=== PATIENT | female | born 1970 | race Caucasian/White ===

== ENCOUNTER 2016-08-12 14:54 | Emergency (ER) | payer BC, OTHER ==
[~2016-08-12] VITALS: Ht 157.5 cm; Wt 61.2 kg
[2016-08-12] MEDS ORDERED: RT-LEVALBUTEROL (XOPENEX) 1.25 MG/3 ML NEB NON-FORMULARY ONE (15:06)
[2016-08-12] MEDS ORDERED: RT-LEVALBUTEROL (XOPENEX) 1.25 MG/3 ML NEB NON-FORMULARY INH ONE (15:10)
[2016-08-12 15:55] LABS: BASOPHILS # (AUTO) 0.1 10^3/uL (0.0-0.1); BASOPHILS % (AUTO) 1 % (0-10); EOSINOPHILS # (AUTO) 0.2 10^3/uL (0.0-0.3); EOSINOPHILS % (AUTO) 2 % (0-10); LYMPHOCYTES % (AUTO) 23 % (12-44); MEAN CORPUSCULAR HEMOGLOBIN 26 PG (25-34); MEAN CORPUSCULAR HGB CONC 32 G/DL (32-36); MEAN CORPUSCULAR VOLUME 81 FL (80-99); MEAN PLATELET VOLUME 9.3 FL (7.4-10.4); MONOCYTES % (AUTO) 12 % (0-12); NEUTROPHILS # (AUTO) 5.3 X 10^3 (1.8-7.8); NEUTROPHILS % (AUTO) 62 % (42-75); PLATELET COUNT 423 10^3/uL (130-400); RED BLOOD COUNT 3.76 10^6/uL (4.35-5.85); RED CELL DISTRIBUTION WIDTH 16.1 % (10.0-14.5); WHITE BLOOD COUNT 8.6 10^3/uL (4.3-11.0)
--- NOTE | 2016-08-12 16:07 | ED Cough/URI ---
General Chief Complaint: Respiratory Problems Stated Complaint: COUGH; CONGESTION; CP Source: patient Exam Limitations: no limitations History of Present Illness Time seen by provider: 16:05 Initial Comments To ER with cough, sore throat, runny nose, shortness of breath. This began yesterday 24 hours ago. No history of DVT. No unilateral leg swelling. She is a one half pack per day smoker. No fevers or chills. She is currently on antibiotics it would likely include amoxicillin and clarithromycin as she recently tested positive for H. pylori Timing/Duration: just prior to arrival Severity/Quality: dry cough Prior Episodes/Possible Cause: no prior episodes Modifying Factors: Improves With Activity Associated Symptoms: cough, shortness of breath Allergies and Home Medications Allergies Coded Allergies: No Allergy Information Available (Unverified , 08/12/16) Home Medications Amoxicillin 500 Mg Capsule #56 (Reported) Atorvastatin Calcium 20 Mg Tablet #30 (Reported) Clarithromycin 500 Mg Tablet #28 (Reported) Clonazepam 0.5 Mg Tablet #60 (Reported) Cyclobenzaprine HCl 10 Mg Tablet #30 (Reported) Metoprolol Succinate 50 Mg Tab.er.24h #30 (Reported) Omeprazole 20 Mg Capsule.dr #60 (Reported) Constitutional: see HPI EENTM: see HPI Respiratory: see HPI dyspnea on exertion short of breath Cardiovascular: no symptoms reported Genitourinary: no symptoms reported Musculoskeletal: no symptoms reported Skin: no symptoms reported Psychiatric/Neurological: No Symptoms Reported Physical Exam Vital Signs Vital Sign - Last 12Hours 08/12/16 08/12/16 14:54 15:15 Temp 97.0 Pulse 98 Resp 18 B/P 116/78 Pulse Ox 98 O2 Delivery Room Air Capillary Refill : General Appearance: WD/WN no apparent distress Eyes: Bilateral Eye EOMI, Bilateral Eye Normal Inspection, Bilateral Eye PERRL HEENT: PERRL/EOMI normal ENT inspection Respiratory: no respiratory distress no accessory muscle use Cardiovascular: no murmur tachycardia Gastrointestinal: normal bowel sounds non tender soft Extremities: normal range of motion non-tender Neurologic/Psychiatric: alert normal mood/affect oriented x 3 Skin: normal color warm/dry Progress/Results/Core Measures Results/Orders Lab Results Laboratory Tests Test 08/12/16 15:00 Range/Units Basophils # (Auto) 0.1 0.0-0.1 10^3/uL Basophils (%) (Auto) 1 0-10 % D-Dimer 0.50 H 0.00-0.49 UG/ML Eosinophils # (Auto) 0.2 0.0-0.3 10^3/uL Eosinophils (%) (Auto) 2 0-10 % Hematocrit 30 L 35-52 % Hemoglobin 9.8 L 11.5-16.0 G/DL Lymphocytes # (Auto) 2.0 1.0-4.0 X 10^3 Lymphocytes (%) (Auto) 23 12-44 % Mean Corpuscular Hemoglobin 26 25-34 PG Mean Corpuscular Hemoglobin Concent 32 32-36 G/DL Mean Corpuscular Volume 81 80-99 FL Mean Platelet Volume 9.3 7.4-10.4 FL Monocytes # (Auto) 1.0 0.0-1.0 X 10^3 Monocytes (%) (Auto) 12 0-12 % Neutrophils # (Auto) 5.3 1.8-7.8 X 10^3 Neutrophils (%) (Auto) 62 42-75 % Platelet Count 423 H 130-400 10^3/uL Red Blood Count 3.76 L 4.35-5.85 10^6/uL Red Cell Distribution Width 16.1 H 10.0-14.5 % Serum Test, Qualitative NEGATIVE NEGATIVE White Blood Count 8.6 4.3-11.0 10^3/uL My Orders Orders-ROX PENNY APRN Ct Angio Chest W (08/12/16 16:07) Iohexol Injection (Omnipaque 350 Mg/Ml 1 (08/12/16 16:15) Ns (Ivpb) (Sodium Chloride 0.9% Ivpb Bag (08/12/16 16:15) Sodium Chloride Flush (Catheter Flush Sy (08/12/16 16:15) Levalbuterol (Non-Formulary) (Xopenex (N (08/12/16 15:10) Medications Given in ED Current Medications Medications Dose Ordered Sig/Shanon Route Start Time Stop Time Status Last Admin Dose Admin Iohexol 150 ml ONCE ONCE IV 08/12/16 16:15 08/12/16 16:21 DC 08/12/16 16:22 125 ML Levalbuterol HCl 1.25 mg UD ONCE INH 08/12/16 15:10 08/12/16 16:22 DC 08/12/16 15:15 1.25 MG Sodium Chloride 100 ml ONCE ONCE IV 08/12/16 16:15 08/12/16 16:21 DC 08/12/16 16:22 80 ML Vital Signs/I&O Vital Sign - Last 12Hours 08/12/16 08/12/16 14:54 15:15 Temp 97.0 Pulse 98 Resp 18 B/P 116/78 Pulse Ox 98 98 O2 Delivery Room Air Departure Communication Progress Notes Radiologist called to report CT findings as they are unable to dictate them at this time. There is no pulmonary embolism or aortic dissection. There is no pneumonia. There are a few pulmonary nodules the largest being 7 mm at the right upper lobe which does warrant follow-up with repeat imaging. She does have rather advanced emphysema given her age. Impression Impression: Primary Impression: COPD exacerbation Additional Impression: Pulmonary nodule Disposition: 01 HOME, SELF-CARE Condition: Stable Departure-Patient Inst. Decision time for Depature: 16:56 Referrals: BE THEODORE DO (PCP/Family) Primary Care Physician Patient Instructions: COPD Including Emphysema (DC) Add. Discharge Instructions: 1. Use the inhaler 2 puffs every 4 hours as needed for shortness of breath 2. Continue your current medications 3. Add the steroids as directed All discharge instructions reviewed with patient and/or family. Voiced understanding. Scripts Prednisone 20 Mg Tab40 Mg PO DAILY #8 TAB Prov:ROX PENNY APRN 08/12/16 Copy Copies To 1: BE THEODORE PETER J APRN Aug 12, 2016 16:06
[2016-08-12] MEDS ORDERED: IOHEXOL 350 MG/ML 150 ML (OMNIPAQUE 350) VIAL IV ONE (16:15)
[2016-08-12] MEDS ORDERED: NS 100 ML (IVPB) BAG IV ONE (16:15)
[2016-08-12] MEDS ORDERED: CATHETER FLUSH 10 ML SYR IV PRN (16:15)
[2016-08-12] MEDS ORDERED: AMOX500C2 (16:45)
[2016-08-12] MEDS ORDERED: METO-272 (16:45)
[2016-08-12] MEDS ORDERED: OMEP20CA12 (16:45)
[2016-08-12] MEDS ORDERED: ATOR20TA66 (16:45)
[2016-08-12] MEDS ORDERED: CYCL10TA9 (16:45)
[2016-08-12] MEDS ORDERED: CLON0.5T3 (16:45)
[2016-08-12] MEDS ORDERED: CLAR-19 (16:45)
[2016-08-12] MEDS ORDERED: predniSONE 20 MG TAB ONE ×2 (16:56→17:00)
[2016-08-12] MEDS ORDERED: PRD20T PO (16:58)
[2016-08-12] MEDS ORDERED: RX-ALBUTEROL INHALER (VENTOLIN HFA) 18 GM IH STA (16:59)
[2016-08-12] MEDS ORDERED: predniSONE 20 MG TAB PO ONE (17:00)
[2016-08-12 17:17] VITALS: BP 116/78
--- NOTE | 2016-08-12 17:46 | Diagnostic Imaging Report ---
PROCEDURE: CT angiography of the chest with contrast. TECHNIQUE: Multiple contiguous axial images were obtained through the chest after uneventful bolus administration of intravenous contrast. Reconstructed CTA MIP acquisitions were also performed. INDICATION: Shortness of breath x 1 week. FINDINGS: Bolus contrast injection shows good opacification of the aorta and pulmonary arteries. No evidence of aortic aneurysm or dissection. Pulmonary arteries are opacified and appear normal. Lungs are well aerated. There is a 6 mm noncalcified nodule in the right upper lobe. There is a 3 mm noncalcified nodule in the left upper lobe. These are both present on page 49 of 148 on series 4. No mediastinal or hilar adenopathy of pathologic size. No pneumothorax. No pleural effusions or pericardial effusions. IMPRESSION: 1. No evidence of pulmonary emboli. 2. Two small noncalcified nodules, one in the right upper lobe and one in the left upper lobe. Six-month followup would be recommended to confirm stability. No previous studies for comparison. Dictated by: Dictated on workstation # [id number]
--- NOTE | 2016-08-12 17:50 | Diagnostic Imaging Report ---
INDICATION: Cough and chest pain. FINDINGS: Examination of the chest in the PA and lateral projections fails to reveal evidence of active parenchymal pathology or pleural effusion. The cardiac silhouette is normal. IMPRESSION: Negative chest. Dictated by: Dictated on workstation # [id number]
== END 2016-08-12 17:17 | disposition home or self-care (01) ==
LOC: EDUNIT# 14:54 → ER 14:54
DX: J44.1 Chronic obstructive pulmonary disease with (acute) exacerbation (principal); R91.8 Other nonspecific abnormal finding of lung field; F17.210 Nicotine dependence, cigarettes, uncomplicated
CPT/HCPCS: 36415; 71020; 71275; 84703; 85025; 85379; 94640

== ENCOUNTER → 2016-09-22 | Outpatient (CLI) | payer OTHER ==
[~2016-09-22] MED LIST: AMOX500C2; ATOR20TA66; CLAR-19; CLON0.5T3; CYCL10TA9; METO-272; OMEP20CA12; PRD20T PO
--- OUTSIDE RECORDS SUMMARY | 2016-09-22 10:15 | XMS REPORT | Continuity of Care Document ---
Author Author [facility] Organization [facility] Address Unknown Phone Unavailable Care Team Providers Care Alcoholism Worker Name Role Phone BE THEODORE DO PCP Insurance Providers Payer Name Policy Number Subscriber Name Relationship [employer] [id number] Leyla Wells 18 Self / Same As Patient [facility] [id number] Leyla Wells 18 Self / Same As Patient Advance Directives Directive Response Recorded Date/Time Advance Directives No 08/12/16 4:41pm Resuscitation Status Full Code 08/12/16 4:41pm Chief Complaint and Reason for Visit Chief Complaint Respiratory Problems Reason for Visit [id number] Problems Active Problems Medical Problem Onset Date Status COPD exacerbation Unknown Acute Pulmonary nodule Unknown Acute Medications Current Home Medications Medication Dose Units Route Directions Days/Qty Instructions Start Date Cyclobenzaprine Hcl 10 Mg 30 08/12/16 Amoxicillin 500 Mg 56 08/12/16 Clarithromycin 500 Mg 28 08/12/16 Omeprazole 20 Mg 60 08/12/16 Clonazepam 0.5 Mg 60 08/12/16 Metoprolol Succinate 50 Mg 30 08/12/16 Atorvastatin Calcium 20 Mg 30 08/12/16 Prednisone 20 Mg 40 Mg Oral Daily 8 08/12/16 Social History Social History Problem Response Recorded Date/Time Alcohol Use Denies Use 08/12/2016 4:41pm Recreational Drug Use No 08/12/2016 4:41pm Recent Foreign Travel No 08/12/2016 2:54pm Recent Infectious Disease Exposure No 08/12/2016 2:54pm Hospitalization with Isolation Denies 08/12/2016 2:54pm Smoking Status Current Everyday Smoker 08/12/2016 4:41pm Recent Hopitalizations No 08/12/2016 4:41pm Hospitalization with Isolation Denies 08/12/2016 2:54pm Query Response Start Date Stop Date Smoking Status Current Everyday Smoker Hospital Discharge Instructions No hospital discharge instructions. Plan of Care Discharge Date 08/12/16 5:17pm Disposition 01 HOME, SELF-CARE Condition at Discharge Stable Instructions/Education Provided COPD Including Emphysema (DC) Prescriptions See Medication Section Referrals BE THEODORE DO - Primary Care Physician Additional Instructions/Education 1. Use the inhaler 2 puffs every 4 hours as needed for shortness of breath 2. Continue your current medications 3. Add the steroids as directed All discharge instructions reviewed with patient and/or family. Voiced understanding. Functional Status No functional status results. Allergies, Adverse Reactions, Alerts Unable to obtain allergies. Immunizations No immunization records. Vital Signs Acute Vital Signs Vital Response Date/Time Temperature (Fahrenheit) 97 degrees F (97.6 - 99.5) 08/12/2016 2:54pm Temperature (Calculated Celsius) 36.1140 degrees C (36.4 - 37.5) 08/12/2016 2 :54pm Pulse Rate (adult) 98 bpm (60 - 90) 08/12/2016 2:54pm Respiratory Rate 18 bpm (12 - 24) 08/12/2016 2:54pm O2 Sat by Pulse Oximetry 98 % (88 - 100) 08/12/2016 3:15pm Blood Pressure 116/78 mm Hg 08/12/2016 2:54pm Blood Pressure Mean 91 mm Hg 08/12/2016 2:54pm Pain Numeric Pain Scale 7 08/12/2016 2:54pm Height (Feet) 5 feet 08/12/2016 2:54pm Height (Inches) 2 inches 08/12/2016 2:54pm Height (Calculated Centimeters) 157.368487 cm 08/12/2016 2:54pm Weight (Pounds) 135 pounds 08/12/2016 2:54pm Weight (Calculated Kilograms) 61.004721 kilograms 08/12/2016 2:54pm Capillary Refill Capillary Refill Less Than 3 Seconds 08/12/2016 2:54pm Height 5 ft 2 in Weight 135 lb Body Mass Index 24.7 kg/m^2 Results Laboratory Results Test Name Result Units Flags Reference Collection Date/Time Result Date/ Time Comments White Blood Count 8.6 10^3/uL 4.3-11.0 08/12/2016 3:00pm 08/12/2016 3: 55pm Red Blood Count 3.76 10^6/uL L 4.35-5.85 08/12/2016 3:00pm 08/12/2016 3: 55pm Hemoglobin 9.8 G/DL L 11.5-16.0 08/12/2016 3:00pm 08/12/2016 3:55pm Hematocrit 30 % L 35-52 08/12/2016 3:00pm 08/12/2016 3:55pm Mean Corpuscular Volume 81 FL 80-99 08/12/2016 3:00pm 08/12/2016 3: 55pm Mean Corpuscular Hemoglobin 26 PG 25-34 08/12/2016 3:00pm 08/12/2016 3: 55pm Mean Corpuscular Hemoglobin Concent 32 G/DL 32-36 08/12/2016 3:00pm 3:55pm Red Cell Distribution Width 16.1 % H 10.0-14.5 08/12/2016 3:00pm 2016 3:55pm Platelet Count 423 10^3/uL H 130-400 08/12/2016 3:00pm 08/12/2016 3:55pm Mean Platelet Volume 9.3 FL 7.4-10.4 08/12/2016 3:00pm 08/12/2016 3: 55pm Neutrophils (%) (Auto) 62 % 42-75 08/12/2016 3:00pm 08/12/2016 3:55pm Lymphocytes (%) (Auto) 23 % 12-44 08/12/2016 3:00pm 08/12/2016 3:55pm Monocytes (%) (Auto) 12 % 0-12 08/12/2016 3:00pm 08/12/2016 3:55pm Eosinophils (%) (Auto) 2 % 0-10 08/12/2016 3:00pm 08/12/2016 3:55pm Basophils (%) (Auto) 1 % 0-10 08/12/2016 3:00pm 08/12/2016 3:55pm Neutrophils # (Auto) 5.3 X 10^3 1.8-7.8 08/12/2016 3:00pm 08/12/2016 3: 55pm Lymphocytes # (Auto) 2.0 X 10^3 1.0-4.0 08/12/2016 3:00pm 08/12/2016 3: 55pm Monocytes # (Auto) 1.0 X 10^3 0.0-1.0 08/12/2016 3:00pm 08/12/2016 3: 55pm Eosinophils # (Auto) 0.2 10^3/uL 0.0-0.3 08/12/2016 3:00pm 08/12/2016 3 :55pm Basophils # (Auto) 0.1 10^3/uL 0.0-0.1 08/12/2016 3:00pm 08/12/2016 3: 55pm D-Dimer 0.50 UG/ML H 0.00-0.49 08/12/2016 3:00pm 08/12/2016 3:57pm Procedures No known history of procedures. Encounters Encounter Location Arrival/Admit Date Discharge/Depart Date Attending Provider Departed Emergency Room [facility] 08/12/16 2:54pm 08/12 5:17pm ROX PENNY APRN Recent Diagnosis
--- NOTE | 2016-09-22 18:59 | Diagnostic Imaging Report ---
Digital mammogram bilateral screening This study was compared to the prior exams of 09/20/15. At this time, there are no current complaints. The current study was also evaluated with a Computer Aided Detection (CAD) system. FINDINGS: The fibroglandular tissue in both breasts is heterogeneously dense. This does limit the sensitivity of this exam. Overall, there does not appear to have been any significant change when compared to the prior study. No primary or secondary sign of malignancy is noted. IMPRESSION: There is no radiographic evidence for malignancy. ACR BI-RADS Category 1: Negative. Result letter will be mailed to the patient. Note: At least 10% of breast cancer is not imaged by mammography. Dictated by: Dictated on workstation # [id number]
== END ==
LOC: RAD 10:12
PROVIDERS: ATTEND Family Medicine
DX: Z12.31 Encounter for screening mammogram for malignant neoplasm of breast (principal)
CPT/HCPCS: 77067

== ENCOUNTER → 2016-11-10 | Outpatient (CLI) | payer OTHER ==
[2016-11-10 11:40] LABS: BASOPHILS # (AUTO) 0.1 10^3/uL (0.0-0.1); BASOPHILS % (AUTO) 1 % (0-10); EOSINOPHILS # (AUTO) 0.3 10^3/uL (0.0-0.3); EOSINOPHILS % (AUTO) 4 % (0-10); LYMPHOCYTES # (AUTO) 2.2 X 10^3 (1.0-4.0); LYMPHOCYTES % (AUTO) 29 % (12-44); MEAN CORPUSCULAR HEMOGLOBIN 22 PG (25-34); MEAN CORPUSCULAR HGB CONC 30 G/DL (32-36); MEAN CORPUSCULAR VOLUME 75 FL (80-99); MEAN PLATELET VOLUME 9.7 FL (7.4-10.4); MONOCYTES # (AUTO) 0.8 X 10^3 (0.0-1.0); MONOCYTES % (AUTO) 10 % (0-12); NEUTROPHILS # (AUTO) 4.3 X 10^3 (1.8-7.8); NEUTROPHILS % (AUTO) 56 % (42-75); PLATELET COUNT 473 10^3/uL (130-400); RED BLOOD COUNT 3.86 10^6/uL (4.35-5.85); RED CELL DISTRIBUTION WIDTH 16.7 % (10.0-14.5); WHITE BLOOD COUNT 7.7 10^3/uL (4.3-11.0)
[2016-11-10 12:35] LABS: ANISOCYTOSIS MODERATE; BAND NEUTROPHILS 0 %; BASOPHILS % (MANUAL) 1 %; EOSINOPHILS % (MANUAL) 4 %; HYPOCHROMASIA SLIGHT; LYMPHOCYTES % (MANUAL) 33 %; MICROCYTOSIS SLIGHT; NEUTROPHILS % (MANUAL) 56 %
[2016-11-13 07:26] LABS: FERRITIN 5.0 L NG/ML (15.0-150.0)
[2016-11-13 07:27] LABS: IPF LEVEL 2.8 % (0.0-7.2)
== END ==
LOC: LAB 11:24
PROVIDERS: ATTEND Family Medicine
DX: D64.9 Anemia, unspecified (principal)
CPT/HCPCS: 36415; 82728; 85007; 85027; 85045; 85055

== ENCOUNTER → 2016-11-28 | Outpatient (CLI) | payer OTHER ==
[2016-11-28 16:57] LABS: BASOPHILS # (AUTO) 0.1 10^3/uL (0.0-0.1); BASOPHILS % (AUTO) 1 % (0-10); EOSINOPHILS # (AUTO) 0.3 10^3/uL (0.0-0.3); EOSINOPHILS % (AUTO) 3 % (0-10); LYMPHOCYTES # (AUTO) 2.5 X 10^3 (1.0-4.0); LYMPHOCYTES % (AUTO) 26 % (12-44); MEAN CORPUSCULAR HEMOGLOBIN 22 PG (25-34); MEAN CORPUSCULAR HGB CONC 30 G/DL (32-36); MEAN CORPUSCULAR VOLUME 73 FL (80-99); MEAN PLATELET VOLUME 9.8 FL (7.4-10.4); MONOCYTES # (AUTO) 0.7 X 10^3 (0.0-1.0); MONOCYTES % (AUTO) 8 % (0-12); NEUTROPHILS % (AUTO) 62 % (42-75); PLATELET COUNT 489 10^3/uL (130-400); RED BLOOD COUNT 3.86 10^6/uL (4.35-5.85); RED CELL DISTRIBUTION WIDTH 16.9 % (10.0-14.5); RETICULOCYTE % 1.02 % (0.50-2.40); WHITE BLOOD COUNT 9.6 10^3/uL (4.3-11.0)
[2016-11-28 19:10] LABS: ANISOCYTOSIS SLIGHT; BAND NEUTROPHILS 0 %; BASOPHILS % (MANUAL) 1 %; EOSINOPHILS % (MANUAL) 3 %; HYPOCHROMASIA SLIGHT; LYMPHOCYTES % (MANUAL) 24 %; NEUTROPHILS % (MANUAL) 70 %; POIKILOCYTOSIS SLIGHT
[2016-11-28 19:11] LABS: MICROCYTOSIS MODERATE
[2016-12-01 08:54] LABS: FERRITIN 5.0 L NG/ML (15.0-150.0)
== END ==
LOC: LAB 16:25
PROVIDERS: ATTEND Family Medicine
DX: D64.9 Anemia, unspecified (principal)
CPT/HCPCS: 36415; 82728; 85007; 85027; 85045

== ENCOUNTER → 2017-11-15 | Outpatient (CLI) | payer OTHER ==
[~2017-11-15] MED LIST changes: +CLON0.5T13; -CLON0.5T3; -METO-272; +METO-370
--- NOTE | 2017-11-15 18:43 | Diagnostic Imaging Report ---
INDICATION: Routine screening. Comparison is made with prior exams from 09/22/2016 and 09/20/2015. The current study was also evaluated with a Computer Aided Detection (CAD) system. FINDINGS: Scattered fibronodular densities are identified bilaterally. There has been development of a rounded mass in the upper-outer aspect of the left breast, perhaps an enlarging cyst. Further evaluation of this area with ultrasound is recommended. This measures approximately 17 mm in size and is located at posterior depth. No spiculated mass or malignant-appearing microcalcifications are seen. There are benign calcifications present. The axillae are unremarkable. IMPRESSION: A rounded density in the upper-outer left breast posterior depth, perhaps a cyst. Further evaluation with ultrasound is recommended. ACR BI-RADS Category 0: Incomplete. (Needs additional imaging evaluation). Result letter will be mailed to the patient. Note: At least 10% of breast cancer is not imaged by mammography. Dictated by: Dictated on workstation # [id number]
== END ==
LOC: RAD 09:40
PROVIDERS: ATTEND Family Medicine
DX: Z12.31 Encounter for screening mammogram for malignant neoplasm of breast (principal); R92.2 Inconclusive mammogram
CPT/HCPCS: 77067

== ENCOUNTER → 2017-11-29 | Outpatient (CLI) | payer OTHER ==
[~2017-11-29] MED LIST changes: -CLON0.5T13; +CLON0.5T3
--- NOTE | 2017-11-29 10:20 | Diagnostic Imaging Report ---
Indication: Abnormal left mammogram. Patient presents for ultrasound for further evaluation. Correlation is made with recent screening mammogram from 11/15/2017. Findings: Sonographic interrogation of the upper outer left breast was performed. There is a smoothly marginated, ovoid solid mass at the 2:30 location of the left breast 5 cm from the nipple measuring 2.2 x 0.9 x 1.7 cm. This demonstrates posterior acoustic enhancement. This is wider than it is tall and slightly macrolobulated. Features are most consistent with a fibroadenoma. In addition, there is a smaller and slightly macrolobulated solid nodule at the 12 o'clock location of the left breast 1 cm from the nipple. This does show some internal vascularity. No shadowing is seen. The margins are slightly less sharp. This lesion is wider than it is tall as while and measures 0.9 x 0.5 x 0.9 cm. Impression: BI-RADS 4 1. Ovoid smoothly marginated mass 2:30 location left breast corresponding with the mammographic abnormality. Imaging features are most consistent with a fibroadenoma. Followup left breast ultrasound in 6 months is recommended to confirm stability. 2. A 9 mm hypoechoic solid nodule 12 o'clock location of the left breast with internal vascularity. This lesion's margins are slightly less sharp. While this too most likely represents a smaller fibroadenoma, other etiologies cannot entirely excluded. Ultrasound-guided core biopsy is recommended for further evaluation. ACR BI-RADS Category 4: Suspicious abnormality. Result letter will be mailed to the patient. Note: At least 10% of breast cancer is not imaged by mammography. Dictated by: Dictated on workstation # [id number]
== END ==
LOC: RAD 08:32
PROVIDERS: ATTEND Family Medicine
DX: N63.21 Unspecified lump in the left breast, upper outer quadrant (principal)
CPT/HCPCS: 76642

== ENCOUNTER → 2017-12-10 | Outpatient (CLI) | payer OTHER ==
[~2017-12-10] VITALS: Ht 157.5 cm; Wt 61.2 kg
[~2017-12-10] MED LIST changes: +LIDOCAINE 1% INJ 50 ML (XYLOCAINE) VIAL IJ ONE; +LIDOCAINE 1% INJ 50 ML (XYLOCAINE) VIAL ONE
[2017-12-10 14:18] VITALS: BP 119/71
[2017-12-10 15:00] VITALS: BP 114/71
--- NOTE | 2017-12-10 18:04 | Diagnostic Imaging Report ---
INDICATION: Left breast mass. Patient presents for ultrasound-guided biopsy. COMPARISON: Correlation is made with recent left breast ultrasound from 11/29/2017. PROCEDURE: Patient was brought to the procedure room and placed on the table in the supine position. Ultrasound imaging over the left breast was performed to evaluate appropriate entry site. Skin of the left breast was then prepped and draped in usual sterile fashion. A small amount of 1% lidocaine was utilized for local anesthesia. Total of 3 passes were made into the left breast and core biopsy of the hypoechoic nodule at the 12 o'clock location 1 cm from the nipple was performed. Clip was deployed adjacent to the nodule. Hemostasis was obtained using manual compression. Patient tolerated the procedure well and left the department in stable condition. IMPRESSION: Successful ultrasound guided core biopsy of the small hypoechoic nodule at the 12 o'clock location of the left breast, 1 cm from the nipple. Pathology results are currently pending. Dictated by: Dictated on workstation # [id number]
--- NOTE | 2017-12-10 18:56 | Diagnostic Imaging Report ---
INDICATION: Left breast biopsy for left breast nodule. FINDINGS: 2D CC and ML views of the left breast were obtained status post left breast biopsy. Images demonstrate a localizer clip at the 12 o'clock location of the left breast anterior depth. IMPRESSION: Satisfactory clip placement in the left breast at the 12 o'clock location, as described. Dictated by: Dictated on workstation # [id number]
== END ==
LOC: RAD 14:08
PROVIDERS: ATTEND Family Medicine
DX: D24.2 Benign neoplasm of left breast (principal)
CPT/HCPCS: 19083; 88305

== ENCOUNTER → 2018-07-25 | Outpatient (CLI) | payer OTHER ==
[~2018-07-25] MED LIST changes: +CLON0.5T13; -CLON0.5T3; -LIDOCAINE 1% INJ 50 ML (XYLOCAINE) VIAL IJ ONE; -LIDOCAINE 1% INJ 50 ML (XYLOCAINE) VIAL ONE
--- NOTE | 2018-07-25 12:17 | Diagnostic Imaging Report ---
Indication: Left heel pain 2 views of the left calcaneus show no fracture or dislocation. Impression: Negative left calcaneus Dictated by: Dictated on workstation # [id number]
== END ==
LOC: RAD 10:43
PROVIDERS: ATTEND Family Medicine
DX: M79.672 Pain in left foot (principal)
CPT/HCPCS: 73650

== ENCOUNTER 2018-08-06 10:40 | Emergency (ER) | payer OTHER ==
[~2018-08-06] VITALS: Ht 157.5 cm; Wt 62.1 kg
[~2018-08-06 10:40] MED LIST changes: -ATOR20TA66; +ATOR20TA66 PO; -CLON0.5T13; +CLON0.5T13 PO; -CYCL10TA9; +CYCL10TA9 PO; -METO-370; +METO-370 PO
--- NOTE | 2018-08-06 11:13 | ED Syncope ---
General Stated Complaint: DIZZINESS Source of Information: Patient, Family, Other Exam Limitations: No Limitations History of Present Illness Date Seen by Provider: Aug 06, 2018 Time Seen by Provider: 10:54 Initial Comments Patient presents to ER by private conveyance with a coworker and significant other and chief complaint that she's felt very tired and winded when walking today and about blacked out. She says she is usually quite healthy and has no history of heart disease. She says she had a heart murmur out 1 time. 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 She is on metoprolol for a rapid heart rate. She has a history of nearly blacking out years ago but they never found a reason for it. She does not have any recent changes of her medications. She discontinue her iron about a year ago that she was taking for anemia because she did not need it anymore. She follows with Dr. Theodore. She says she was at work at the [employer] and has not been sick lately nor any fevers chills nausea vomiting weakness cough shortness of breath until today when she was walking around she was just getting easily winded. She did not actually pass out any point nor did she fall strike her head. She's not on blood thinners. She 's not having any pain anywhere. She's not felt any palpitations or heart flutter. She mentions that recently she saw Dr. Spencer, podiatry and he put some orthotics in her shoes for some chronic foot problems. Allergies and Home Medications Allergies Coded Allergies: No Known Drug Allergies (Unverified , 12/10/17) Home Medications Prednisone 20 Mg Tab, 40 MG PO DAILY Prescribed by: ROX PENNY on 08/12/16 4102 Patient Home Medication List Home Medication List Reviewed: Yes Review of Systems Constitutional: No chills, No fever EENTM: No ear discharge, No ear pain Respiratory: No cough; dyspnea on exertion, short of breath; No wheezing Cardiovascular: No chest pain, No edema, No Hx of Intervention, No palpitations ; syncope (near-syncope only) Gastrointestinal: No abdominal pain, No constipation, No diarrhea, No nausea, No vomiting Genitourinary: No discharge, No dysuria : No LMP: Aug 04, 2018 Control/STD Prophylaxis: None Musculoskeletal: No back pain, No joint pain Skin: No pruritus, No rash Past Fxvimtd-Ggwlwo-Xhfnjk Hx Patient Social History Alcohol Use: Denies Use Recreational Drug Use: No Smoking Status: Former Smoker Type Used: Electronic/Vapor (occasionally use) Former Smoker, Quit: Aug 13, 2017 Recent Hopitalizations: No Immunizations Up To Date Date of Influenza Vaccine: May 14, 2016 Past Medical History Hypertension Gastroesophageal Reflux Adverse Reaction/Blood Tranf: No Physical Exam Vital Signs Vital Signs - First Documented 08/06/18 11:10 Temp 97.7 Pulse 93 Resp 17 B/P (MAP) 115/81 (92) Pulse Ox 100 O2 Delivery Room Air Capillary Refill : Height, Weight, BMI Height: 5'2.00" Weight: 135lbs. 0.0oz. [id number]; 24.7 BMI Method:Stated General Appearance: No Apparent Distress, WD/WN HEENT: PERRL/EOMI, TMs Normal, Normal ENT Inspection, Pharynx Normal ( oropharynx is dry); No Moist Mucous Membranes Neck: Full Range of Motion, Normal Inspection, Non Tender, Supple Cardiovascular: Regular Rate, Rhythm (mid 90s), No Edema, No Gallop, No JVD, No Murmur, Normal Peripheral Pulses Respiratory: Chest Non Tender, Lungs Clear, Normal Breath Sounds, No Accessory Muscle Use, No Respiratory Distress Gastrointestinal: Normal Bowel Sounds, Non Tender, Soft Extremities: Normal Capillary Refill, Normal Inspection Neurologic/Psychiatric: Alert, Oriented x3 Cranial Nerves: Normal Hearing, Normal Speech, PERRL Motor/Sensory: No Motor Deficit, No Sensory Deficit Skin: Normal Color, Warm/Dry Progress/Results/Core Measures Results/Orders Lab Results Laboratory Tests Test 08/06/18 11:25 08/06/18 12:25 08/06/18 13:35 Range/Units White Blood Count 10.3 4.3-11.0 10^3/uL Red Blood Count 4.39 4.35-5.85 10^6/uL Hemoglobin 11.4 L 11.5-16.0 G/DL Hematocrit 36 35-52 % Mean Corpuscular Volume 83 80-99 FL Mean Corpuscular Hemoglobin 26 25-34 PG Mean Corpuscular Hemoglobin Concent 31 L 32-36 G/DL Red Cell Distribution Width 16.5 H 10.0-14.5 % Platelet Count 536 H 130-400 10^3/uL Mean Platelet Volume 9.6 7.4-10.4 FL Neutrophils (%) (Auto) 68 42-75 % Lymphocytes (%) (Auto) 22 12-44 % Monocytes (%) (Auto) 8 0-12 % Eosinophils (%) (Auto) 2 0-10 % Basophils (%) (Auto) 1 0-10 % Neutrophils # (Auto) 7.0 1.8-7.8 X 10^3 Lymphocytes # (Auto) 2.3 1.0-4.0 X 10^3 Monocytes # (Auto) 0.8 0.0-1.0 X 10^3 Eosinophils # (Auto) 0.2 0.0-0.3 10^3/uL Basophils # (Auto) 0.1 0.0-0.1 10^3/uL Serum Test, Qualitative NEGATIVE NEGATIVE Sodium Level 137 135-145 MMOL/L Potassium Level 4.4 3.6-5.0 MMOL/L Chloride Level 106 98-107 MMOL/L Carbon Dioxide Level 21 21-32 MMOL/L Anion Gap 10 5-14 MMOL/L Blood Urea Nitrogen 12 7-18 MG/DL Creatinine 0.82 0.60-1.30 MG/DL Estimat Glomerular Filtration Rate > 60 BUN/Creatinine Ratio 15 Glucose Level 80 70-105 MG/DL Calcium Level 9.4 8.5-10.1 MG/DL Corrected Calcium 9.4 8.5-10.1 MG/DL Total Bilirubin 0.1 0.1-1.0 MG/DL Aspartate Amino Transf (AST/SGOT) 17 5-34 U/L Alanine Aminotransferase (ALT/SGPT) 16 0-55 U/L Alkaline Phosphatase 44 40-136 U/L Total Protein 7.2 6.4-8.2 GM/DL Albumin 4.0 3.2-4.5 GM/DL Thyroid Stimulating Hormone (TSH) 0.57 0.35-4.94 UIU/ML Serum Alcohol < 10 <10 MG/DL Urine Color YELLOW Urine Clarity CLEAR Urine pH 6 5-9 Urine Specific Cutler 1.010 L 1.016-1.022 Urine Protein NEGATIVE NEGATIVE Urine Glucose (UA) NEGATIVE NEGATIVE Urine Ketones NEGATIVE NEGATIVE Urine Nitrite NEGATIVE NEGATIVE Urine Bilirubin NEGATIVE NEGATIVE Urine Urobilinogen NORMAL NORMAL MG/DL Urine Leukocyte Esterase NEGATIVE NEGATIVE Urine RBC (Auto) NEGATIVE NEGATIVE Urine RBC NONE /HPF Urine WBC NONE /HPF Urine Squamous Epithelial Cells 0-2 /HPF Urine Crystals NONE /LPF Urine Bacteria NEGATIVE /HPF Urine Casts NONE /LPF Urine Mucus NEGATIVE /LPF Urine Culture Indicated NO Urine Opiates Screen NEGATIVE NEGATIVE Urine Oxycodone Screen NEGATIVE NEGATIVE Urine Methadone Screen NEGATIVE NEGATIVE Urine Propoxyphene Screen NEGATIVE NEGATIVE Urine Barbiturates Screen NEGATIVE NEGATIVE Ur Tricyclic Antidepressants Screen POSITIVE H NEGATIVE Urine Phencyclidine Screen NEGATIVE NEGATIVE Urine Amphetamines Screen NEGATIVE NEGATIVE Urine Methamphetamines Screen NEGATIVE NEGATIVE Urine Benzodiazepines Screen NEGATIVE NEGATIVE Urine Cocaine Screen NEGATIVE NEGATIVE Urine Cannabinoids Screen NEGATIVE NEGATIVE My Orders Orders - CELENA HASSAN Ekg Tracing (08/06/18 11:02) Alcohol (08/06/18 11:05) Cbc With Automated Diff (08/06/18 11:05) Comprehensive Metabolic Panel (08/06/18 11:05) Drug Screen Stat (Urine) (08/06/18 11:05) Thyroid Stimulating Hormone (08/06/18 11:05) Ua Culture If Indicated (08/06/18 11:05) Chest Pa/Lat (2 View) (08/06/18 11:05) Orthostatic Vital Signs (Adult (08/06/18 11:05) Continuous Ekg Monitoring (08/06/18 11:05) Hcg,Qualitative Serum (08/06/18 11:19) Vital Signs/I&O 08/06/18 08/06/18 11:10 11:20 Temp 97.7 Pulse 93 85 89 92 Resp 17 B/P (MAP) 115/81 (92) 117/81 (93) 112/86 (95) 103/96 (98) Pulse Ox 100 O2 Delivery Room Air Progress Progress Note #1: Time: 11:15 Progress Note Anemia versus dysrhythmia versus orthostasis secondary to volume depletion although the reason would be unknown at this juncture. Pulmonary lesion or pneumonia could be possible but she's not having a cough or fever. She denies having a cough, hemoptysis, objective hypoxia, chest pain or risk factors for developing a pulmonary embolism. She has no previous or family history of pulmonary embolism or clotting disorders. 0 points on the Wells score. Orthostatic vital signs are not positive. EKG is unremarkable. Progress Note #2: Time: 13:16 Progress Note No evidence of dysrhythmia on telemetry or EKG. The anemia is too mild of cost her symptoms. A UTI could possibly because and some near-syncope. Since all of her breathlessness has been subjective without any objective findings will have to insist on getting a good urine specimen. The urine specimen she provided unfortunately contained a tampon and large blood clot in the hat so we'll give her some oral fluids and get a straight catheter and about 20-30 minutes. Initial ECG Impression Date: Aug 06, 2018 Initial ECG Impression Time: 11:08 Initial ECG Rate: 82 Initial ECG Rhythm: Normal Sinus Initial ECG Intervals: Normal Initial ECG Impression: Normal Initial ECG Comparisson: No Previous ECG Available Comment No ST segment elevation or depression. Diagnostic Imaging Diagonstic Imaging: Xray Plain Films/CT/US/NM/MRI: chest (2v) Reviewed: Reviewed by Me Departure Impression Primary Impression: Near syncope Disposition: 01 HOME, SELF-CARE Condition: Stable Departure-Patient Inst. Decision time for Depature: 14:30 Referrals: BE THEODORE DO (PCP/Family) Primary Care Physician Patient Instructions: Syncope (Fainting) (DC) Add. Discharge Instructions: Follow-up with your primary care provider outpatient in the clinic to continue workup for your near syncope and shortness of breath. If you have any chest pain or other worsening severe symptoms then you should return to the nearest ER for further evaluation. Drink plenty of fluids. Work/School Note: Work Release Form Date Seen in the Emergency Department: Aug 06, 2018 Return to Work: Aug 07, 2018 Restrictions: No Restrictions Copy Copies To 1: BE THEODORE TITUS J Aug 06, 2018 11:13
[2018-08-06 11:20] VITALS: BP_SYST 103; BP_SYST 112; BP_SYST 117; BP_DIAS 81; BP_DIAS 86; BP_DIAS 96
[2018-08-06 11:41] LABS: BASOPHILS # (AUTO) 0.1 10^3/uL (0.0-0.1); BASOPHILS % (AUTO) 1 % (0-10); EOSINOPHILS # (AUTO) 0.2 10^3/uL (0.0-0.3); EOSINOPHILS % (AUTO) 2 % (0-10); HEMATOCRIT 36 % (35-52); HEMOGLOBIN 11.4 G/DL (11.5-16.0); LYMPHOCYTES # (AUTO) 2.3 X 10^3 (1.0-4.0); LYMPHOCYTES % (AUTO) 22 % (12-44); MEAN CORPUSCULAR HEMOGLOBIN 26 PG (25-34); MEAN CORPUSCULAR HGB CONC 31 G/DL (32-36); MEAN CORPUSCULAR VOLUME 83 FL (80-99); MEAN PLATELET VOLUME 9.6 FL (7.4-10.4); MONOCYTES # (AUTO) 0.8 X 10^3 (0.0-1.0); MONOCYTES % (AUTO) 8 % (0-12); NEUTROPHILS % (AUTO) 68 % (42-75); PLATELET COUNT 536 10^3/uL (130-400); RED BLOOD COUNT 4.39 10^6/uL (4.35-5.85); RED CELL DISTRIBUTION WIDTH 16.5 % (10.0-14.5); WHITE BLOOD COUNT 10.3 10^3/uL (4.3-11.0)
--- NOTE | 2018-08-06 11:47 | NUR ---
Pt reports being unable to urinate at this time.
[2018-08-06 12:55] LABS: ALANINE AMINOTRANSFERASE 16 U/L (0-55); ALKALINE PHOSPHATASE 44 U/L (40-136); BILIRUBIN,TOTAL 0.1 MG/DL (0.1-1.0); BUN/CREATININE RATIO 15; CALCIUM 9.4 MG/DL (8.5-10.1); CARBON DIOXIDE 21 MMOL/L (21-32); CHLORIDE 106 MMOL/L (98-107); CREATININE SERUM 0.82 MG/DL (0.60-1.30); GFR ESTIMATED > 60; GLUCOSE 80 MG/DL (70-105); POTASSIUM 4.4 MMOL/L (3.6-5.0); SODIUM 137 MMOL/L (135-145); TOTAL PROTEIN 7.2 GM/DL (6.4-8.2)
[2018-08-06 13:43] LABS: BILIRUBIN,URINE NEGATIVE (NEGATIVE); CLARITY,URINE CLEAR; COLOR,URINE YELLOW; GLUCOSE, URINE (UA) NEGATIVE (NEGATIVE); KETONES,URINE NEGATIVE (NEGATIVE); LEUKOCYTE ESTERASE ,URINE NEGATIVE (NEGATIVE); NITRITE,URINE NEGATIVE (NEGATIVE); PH,URINE 6 (5-9); PROTEIN,URINE NEGATIVE (NEGATIVE); UROBILINOGEN,URINE NORMAL (NORMAL)
[2018-08-06 13:50] LABS: BACTERIA,URINE NEGATIVE /HPF; SQUAMOUS EPITHELIAL CELL,UR 0-2 /HPF
[2018-08-06 13:55] LABS: AMPHETAMINE SCREEN, URINE NEGATIVE (NEGATIVE); BARBITURATE SCREEN URINE NEGATIVE (NEGATIVE); BENZODIAZEPINES SCREEN URINE NEGATIVE (NEGATIVE); CANNABINOID SCREEN, URINE NEGATIVE (NEGATIVE); COCAINE SCREEN URINE NEGATIVE (NEGATIVE); METHADONE STAT NEGATIVE (NEGATIVE); METHAMPHETAMINE SCREEN URINE S NEGATIVE (NEGATIVE); OPIATE SCREEN URINE NEGATIVE (NEGATIVE); OXYCODONE STAT NEGATIVE (NEGATIVE); PROPOXYPHENE STAT NEGATIVE (NEGATIVE); TRICYCLIC ANTIDEPRESSANTS SCRE POSITIVE (NEGATIVE)
--- NOTE | 2018-08-06 14:09 | Diagnostic Imaging Report ---
Indication: Dizziness. Time of exam: 12:23 PM Comparison is made with prior chest radiograph from 08/12/2016. The heart size is stable. Interstitial markings are slightly prominent in the perihilar regions. Slightly nodular density in the left upper lobe is noted. No parenchymal consolidation is seen. No effusion or pneumothorax is identified. Impression: Mildly prominent interstitial changes, acuity indeterminate. No proximal consolidation is identified. Dictated by: Dictated on workstation # [id number]
--- NOTE | 2018-08-06 14:44 | NUR ---
Walked pt to end of [place] and back. Pt reports no longer feeling dizzy, but feels short of breath when walking.
[2018-08-06 15:00] VITALS: BP 120/92
[2018-08-08] MEDS ORDERED: DIPH25CA79 PO (15:36)
[2018-08-08] MEDS ORDERED: TRAZ-189 PO (15:36)
[2018-08-08] MEDS ORDERED: ASPI-789 PO (15:36)
[2018-08-08] MEDS ORDERED: MELA3TAB PO (15:37)
== END 2018-08-06 15:00 | disposition home or self-care (01) ==
LOC: EDUNIT# 10:40 → ER 10:41
DX: R55 Syncope and collapse (principal); D64.9 Anemia, unspecified; I10 Essential (primary) hypertension; K21.9 Gastro-esophageal reflux disease without esophagitis; Z79.52 Long term (current) use of systemic steroids; Z87.891 Personal history of nicotine dependence
CPT/HCPCS: 36415; 71046; 80053; 80306; 80320; 81000; 84443; 84703; 85025; 93005

== ENCOUNTER 2018-08-08 13:57 | Inpatient (IN) | payer OTHER | END 2018-08-15 15:20 | disposition other institution (70) | LOC: 4TH 13:57 | DX: I95.1 Orthostatic hypotension (principal); D50.0 Iron deficiency anemia secondary to blood loss (chronic); R00.0 Tachycardia, unspecified; R00.2 Palpitations; R07.89 Other chest pain; R50.9 Fever, unspecified; F41.9 Anxiety disorder, unspecified; R53.1 Weakness; I10 Essential (primary) hypertension; R01.1 Cardiac murmur, unspecified; K21.9 Gastro-esophageal reflux disease without esophagitis; J30.2 Other seasonal allergic rhinitis; E78.5 Hyperlipidemia, unspecified; E87.6 Hypokalemia; Z87.11 Personal history of peptic ulcer disease; Z87.891 Personal history of nicotine dependence ==

== ENCOUNTER 2018-09-23 09:50 | Outpatient (RCR) | payer OTHER ==
[~2018-09-23 09:50] MED LIST changes: +ASPI-789 PO; +DIPH25CA79 PO; +IRON SUCROSE 100 MG/5 ML (VENOFER) VIAL CANCER CTR IV SCH; +MELA3TAB PO; +TRAZ-189 PO
[2018-09-23 10:07] LABS: BASOPHILS # (AUTO) 0.1 10^3/uL (0.0-0.1); BASOPHILS % (AUTO) 1 % (0-10); EOSINOPHILS # (AUTO) 0.2 10^3/uL (0.0-0.3); EOSINOPHILS % (AUTO) 3 % (0-10); HEMATOCRIT 37 % (35-52); HEMOGLOBIN 12.2 G/DL (11.5-16.0); LYMPHOCYTES # (AUTO) 2.1 X 10^3 (1.0-4.0); LYMPHOCYTES % (AUTO) 29 % (12-44); MEAN CORPUSCULAR HEMOGLOBIN 29 PG (25-34); MEAN CORPUSCULAR HGB CONC 33 G/DL (32-36); MEAN CORPUSCULAR VOLUME 89 FL (80-99); MEAN PLATELET VOLUME 9.7 FL (7.4-10.4); MONOCYTES # (AUTO) 0.6 X 10^3 (0.0-1.0); MONOCYTES % (AUTO) 9 % (0-12); NEUTROPHILS # (AUTO) 4.1 X 10^3 (1.8-7.8); NEUTROPHILS % (AUTO) 58 % (42-75); PLATELET COUNT 378 10^3/uL (130-400); RED CELL DISTRIBUTION WIDTH 19.5 % (10.0-14.5)
[2018-09-23 10:31] LABS: ALANINE AMINOTRANSFERASE 18 U/L (0-55); ALBUMIN 4.4 GM/DL (3.2-4.5); ALKALINE PHOSPHATASE 48 U/L (40-136); BILIRUBIN,TOTAL 0.2 MG/DL (0.1-1.0); BUN/CREATININE RATIO 13; CALCIUM 9.7 MG/DL (8.5-10.1); CARBON DIOXIDE 22 MMOL/L (21-32); CHLORIDE 105 MMOL/L (98-107); CREATININE SERUM 0.82 MG/DL (0.60-1.30); GFR ESTIMATED > 60; GLUCOSE 96 MG/DL (70-105); POTASSIUM 3.6 MMOL/L (3.6-5.0); SODIUM 137 MMOL/L (135-145)
== END 2018-11-17 | disposition home or self-care (01) ==
LOC: ONC 09:50
PROVIDERS: ATTEND Internal Medicine Hematology & Oncology
DX: D50.9 Iron deficiency anemia, unspecified (principal)
CPT/HCPCS: 36415; 80053; 82728; 83883; 84155; 84165; 85025; 96374; 99213

== ENCOUNTER → 2018-12-11 | Outpatient (CLI) | payer OTHER ==
[~2018-12-11] MED LIST changes: -IRON SUCROSE 100 MG/5 ML (VENOFER) VIAL CANCER CTR IV SCH
--- NOTE | 2018-12-11 10:13 | Diagnostic Imaging Report ---
INDICATION: Palpable lumps in the left breast. COMPARISON: Correlation is made with prior mammograms of 11/15/2017 and 09/22/2016. TECHNIQUE: 2D and 3D bilateral diagnostic mammography was performed with CAD. FINDINGS: Both breasts remain heterogeneously dense, limiting the sensitivity of mammography. A marker biopsy clip in the retroareolar upper left breast is noted. BB markers were placed at the areas of palpable abnormality in the outer left breast slightly superior. No underlying mass is seen. No suspicious calcifications are identified. The right breast is unremarkable. The axillae are unremarkable. IMPRESSION: No mammographic features suspicious for malignancy are identified. Even so, directed sonographic interrogation of the areas of palpable abnormality in the upper-outer left breast is recommended and will be performed today. ACR BI-RADS Category 0: Incomplete. (Needs additional imaging evaluation). Result letter will be mailed to the patient. Note: At least 10% of breast cancer is not imaged by mammography. Dictated by: Dictated on workstation # [id number]
--- NOTE | 2018-12-11 13:22 | Diagnostic Imaging Report ---
INDICATION: Palpable lump in the left breast. COMPARISON: Correlation is made with the diagnostic mammogram from earlier this same day as well as the prior left breast ultrasound from 11/29/2017. TECHNIQUE: Sonographic interrogation of the palpable lump in the upper outer left breast was performed. FINDINGS: There is a circumscribed lobulated hypoechoic solid mass at approximately the 1:30 location 4 cm from the nipple. This appears to represent the same solid nodule noted at the 2:30 location on the prior ultrasound from 1 year earlier. This has the appearance of a fibroadenoma. This measures 2.2 x 1.2 x 1.5 cm compared with 2.2 x 0.9 x 1.7 cm on the prior exam. Additionally, the 3 o'clock location was evaluated at an area of a second lump described by the patient; however, no sonographic abnormality at this location is seen. No solid or cystic mass is detected. IMPRESSION: Findings are suggestive of a fibroadenoma at the 1:30 location of the left breast 4 cm from the nipple, very similar to the examination from 1 year earlier. Even so, a followup left breast ultrasound in 6 months is recommended to show continued stability. ACR BI-RADS Category 3: Probably benign findings. Result letter will be mailed to the patient. Note: At least 10% of breast cancer is not imaged by mammography. Dictated by: Dictated on workstation # [id number]
== END ==
LOC: RAD 08:05
PROVIDERS: ATTEND Family Medicine
DX: N63.21 Unspecified lump in the left breast, upper outer quadrant (principal); Z98.890 Other specified postprocedural states
CPT/HCPCS: 76642; 77066

== ENCOUNTER → 2018-12-17 | Outpatient (CLI) | payer OTHER ==
[2018-12-17 09:39] LABS: BASOPHILS # (AUTO) 0.1 10^3/uL (0.0-0.1); BASOPHILS % (AUTO) 1 % (0-10); EOSINOPHILS # (AUTO) 0.3 10^3/uL (0.0-0.3); EOSINOPHILS % (AUTO) 3 % (0-10); HEMATOCRIT 36 % (35-52); HEMOGLOBIN 11.7 G/DL (11.5-16.0); LYMPHOCYTES # (AUTO) 2.2 X 10^3 (1.0-4.0); LYMPHOCYTES % (AUTO) 22 % (12-44); MEAN CORPUSCULAR HEMOGLOBIN 32 PG (25-34); MEAN CORPUSCULAR HGB CONC 33 G/DL (32-36); MEAN CORPUSCULAR VOLUME 96 FL (80-99); MEAN PLATELET VOLUME 9.2 FL (7.4-10.4); MONOCYTES # (AUTO) 0.9 X 10^3 (0.0-1.0); MONOCYTES % (AUTO) 9 % (0-12); NEUTROPHILS # (AUTO) 6.3 X 10^3 (1.8-7.8); NEUTROPHILS % (AUTO) 65 % (42-75); PLATELET COUNT 388 10^3/uL (130-400); RED CELL DISTRIBUTION WIDTH 13.1 % (10.0-14.5); WHITE BLOOD COUNT 9.8 10^3/uL (4.3-11.0)
[2018-12-17 10:06] LABS: ALANINE AMINOTRANSFERASE 15 U/L (0-55); ALBUMIN 4.3 GM/DL (3.2-4.5); ALKALINE PHOSPHATASE 46 U/L (40-136); BILIRUBIN,TOTAL 0.4 MG/DL (0.1-1.0); BUN/CREATININE RATIO 16; CALCIUM 9.9 MG/DL (8.5-10.1); CARBON DIOXIDE 25 MMOL/L (21-32); CHLORIDE 102 MMOL/L (98-107); CREATININE SERUM 0.73 MG/DL (0.60-1.30); GFR ESTIMATED > 60; GLUCOSE 96 MG/DL (70-105); POTASSIUM 4.4 MMOL/L (3.6-5.0); SODIUM 138 MMOL/L (135-145); TOTAL PROTEIN 7.5 GM/DL (6.4-8.2)
[2018-12-17 10:47] LABS: FREE T4 (FREE THYROXINE) 0.78 NG/DL (0.70-1.48)
== END ==
LOC: LAB 09:07
PROVIDERS: ATTEND Psychiatry & Neurology Neurology
DX: G35 Multiple sclerosis (principal); R29.6 Repeated falls
CPT/HCPCS: 36415; 80053; 82607; 82746; 84155; 84165; 84207; 84425; 84439; 84443; 85025; 86334

== ENCOUNTER → 2018-12-26 | Outpatient (CLI) | payer OTHER ==
[~2018-12-26] MED LIST changes: -TRAZ-189 PO; +TRAZ-222 PO
== END ==
LOC: LAB 09:06
PROVIDERS: ATTEND Psychiatry & Neurology Neurology
DX: G35 Multiple sclerosis (principal); R29.6 Repeated falls
CPT/HCPCS: 36415; 84207

== ENCOUNTER → 2018-12-31 | Outpatient (CLI) | payer OTHER ==
[~2018-12-31] MED LIST changes: +GADOBUTROL 7.5 MMOL/7.5 ML (GADAVIST) VIAL IV ONE
--- NOTE | 2018-12-31 15:56 | Diagnostic Imaging Report ---
PROCEDURE: MR imaging of the brain with and without contrast. TECHNIQUE: Multiplanar, multisequence MR imaging of the brain was performed with and without contrast. INDICATION: Dizziness. Patient has family history of MS. COMPARISON: No prior studies are available for comparison. FINDINGS: The ventricles and sulci are within normal limits. Tiny foci of white matter signal are noted adjacent to the occipital horns of lateral ventricles. Tiny foci more superiorly in the parafalcine locations are noted. Pattern is not typical for MS and could be secondary to chronic microvascular ischemia. There is no diffusion restriction. Normal expected flow-voids within the carotid siphons are seen. Corpus callosum is unremarkable. No acute intra-axial or extra-axial hemorrhage is detected. No abnormal enhancement following contrast is identified. Sella and parasellar structures are unremarkable. There is moderate fluid in the left maxillary sinus. There appears to be a nodule in the left parotid gland measuring 18 mm x 12 mm. This was not entirely included on this exam. This does show some mild internal enhancement following contrast. IMPRESSION: 1. There are occasional tiny periventricular white matter foci, nonspecific but likely on the basis of chronic microvascular ischemia. Continued followup can be performed. No acute intracranial process is detected. 2. Left parotid mass. Dedicated CT soft tissue neck would be useful for better characterization. Dictated by: Dictated on workstation # [id number]
== END ==
LOC: RAD 14:37
PROVIDERS: ATTEND Psychiatry & Neurology Neurology
DX: G35 Multiple sclerosis (principal); K11.8 Other diseases of salivary glands; R29.6 Repeated falls; Z82.0 Family history of epilepsy and other diseases of the nervous system
CPT/HCPCS: 70553

== ENCOUNTER → 2019-01-17 | Outpatient (CLI) | payer OTHER ==
[~2019-01-17] MED LIST changes: +CATHETER FLUSH 10 ML SYR IV PRN; -GADOBUTROL 7.5 MMOL/7.5 ML (GADAVIST) VIAL IV ONE; +HOLD METFORMIN - RECEIVED CONTRAST 20 ML VIAL IV SCH; +IOHEXOL 350 MG/ML 100 ML (OMNIPAQUE 350) VIAL IV ONE; +NS 100 ML (IVPB) BAG IV ONE
--- NOTE | 2019-01-17 10:09 | Diagnostic Imaging Report ---
PROCEDURE: CT neck soft tissue with contrast. TECHNIQUE: Multiple contiguous axial images were obtained through the neck after the administration of contrast. Auto Exposure Controls were utilized during the CT exam to meet ALARA standards for radiation dose reduction. INDICATION: Left parotid mass. COMPARISON: MRI of the brain without and with IV contrast 12/31/2018. FINDINGS: The heterogeneously enhancing T2 hyperintense mass in the superficial left parotid gland seen on the prior exam measures approximately 1.4 1.1 x [address] This is soft tissue in attenuation with only mild enhancement which was better demonstrated on the MRI. No other mass is identified in the neck. No cervical lymphadenopathy. The major salivary glands are otherwise negative. The thyroid is normal. The cervical carotid and vertebral arteries are grossly patent. Complete opacification of the left maxillary sinus. Mastoids clear. The tongue base, floor of the mouth and epiglottis are negative. No pharyngeal or laryngeal soft tissue mass or abnormal enhancement. Advanced emphysema in the lung apices. IMPRESSION: Indeterminate soft tissue mass in the left parotid gland with heterogeneous enhancement is indeterminate. Most likely diagnostic considerations would include a Warthin's tumor or pleomorphic adenoma. A more aggressive lesion, including primary parotid carcinoma, malignant mixed tumor or metastasis is not excluded, particularly given the heterogeneous enhancement. This lesion should be amenable to ultrasound-guided biopsy. Dictated by: Dictated on workstation # [id number]
== END ==
LOC: RAD 08:25
PROVIDERS: ATTEND Family Medicine
DX: K11.8 Other diseases of salivary glands (principal)
CPT/HCPCS: 70491

== ENCOUNTER → 2019-01-23 | Outpatient (CLI) | payer OTHER ==
[~2019-01-23] VITALS: Ht 157.5 cm; Wt 59.0 kg
[~2019-01-23] MED LIST changes: -CATHETER FLUSH 10 ML SYR IV PRN; -HOLD METFORMIN - RECEIVED CONTRAST 20 ML VIAL IV SCH; -IOHEXOL 350 MG/ML 100 ML (OMNIPAQUE 350) VIAL IV ONE; +LIDOCAINE 1% INJ 20 ML 20 ML VIAL INJ ONE; -NS 100 ML (IVPB) BAG IV ONE
--- NOTE | 2019-01-23 19:00 | Diagnostic Imaging Report ---
INDICATION: Left parotid mass. Patient presents for ultrasound-guided biopsy. FINDINGS: Patient was brought to the procedure room, placed on the bed in the [id number] decubitus position. The left parotid gland was evaluated with ultrasound to evaluate appropriate entry site. Skin of the left parotid region was prepped and draped in the usual sterile fashion. A small amount of 1% lidocaine was utilized for local anesthesia. 20-gauge Temno needle was used to obtain three core biopsies of the hypoechoic mass located within the left parotid gland. Hemostasis was obtained using manual compression. Patient tolerated the procedure well and left the department in stable condition. IMPRESSION: Successful ultrasound-guided core biopsy of the left parotid mass. Pathology results are currently pending. Dictated by: Dictated on workstation # [id number]
== END ==
LOC: RAD 10:20
PROVIDERS: ATTEND Family Medicine
DX: K11.8 Other diseases of salivary glands (principal)
CPT/HCPCS: 88305

== ENCOUNTER → 2019-01-29 | Outpatient (CLI) | payer OTHER ==
[~2019-01-29] MED LIST changes: -LIDOCAINE 1% INJ 20 ML 20 ML VIAL INJ ONE
[2019-01-29 16:43] LABS: BASOPHILS # (AUTO) 0.1 10^3/uL (0.0-0.1); BASOPHILS % (AUTO) 1 % (0-10); EOSINOPHILS # (AUTO) 0.4 10^3/uL (0.0-0.3); EOSINOPHILS % (AUTO) 5 % (0-10); HEMATOCRIT 35 % (35-52); HEMOGLOBIN 11.4 G/DL (11.5-16.0); LYMPHOCYTES # (AUTO) 2.1 X 10^3 (1.0-4.0); LYMPHOCYTES % (AUTO) 26 % (12-44); MEAN CORPUSCULAR HEMOGLOBIN 32 PG (25-34); MEAN CORPUSCULAR HGB CONC 33 G/DL (32-36); MEAN CORPUSCULAR VOLUME 96 FL (80-99); MEAN PLATELET VOLUME 9.7 FL (7.4-10.4); MONOCYTES # (AUTO) 0.8 X 10^3 (0.0-1.0); MONOCYTES % (AUTO) 9 % (0-12); NEUTROPHILS % (AUTO) 60 % (42-75); PLATELET COUNT 379 10^3/uL (130-400); RED CELL DISTRIBUTION WIDTH 12.8 % (10.0-14.5); WHITE BLOOD COUNT 8.3 10^3/uL (4.3-11.0)
== END ==
LOC: LAB 16:18
PROVIDERS: ATTEND Family Medicine
DX: D64.9 Anemia, unspecified (principal)
CPT/HCPCS: 36415; 82728; 85025

== ENCOUNTER 2019-03-11 15:03 | Outpatient (RCR) | payer OTHER ==
[2018-12-16 10:45] LABS: BASOPHILS # (AUTO) 0.1 10^3/uL (0.0-0.1); BASOPHILS % (AUTO) 1 % (0-10); EOSINOPHILS # (AUTO) 0.3 10^3/uL (0.0-0.3); EOSINOPHILS % (AUTO) 2 % (0-10); HEMATOCRIT 36 % (35-52); HEMOGLOBIN 11.6 G/DL (11.5-16.0); LYMPHOCYTES # (AUTO) 2.4 X 10^3 (1.0-4.0); LYMPHOCYTES % (AUTO) 23 % (12-44); MEAN CORPUSCULAR HEMOGLOBIN 31 PG (25-34); MEAN CORPUSCULAR HGB CONC 33 G/DL (32-36); MEAN CORPUSCULAR VOLUME 97 FL (80-99); MEAN PLATELET VOLUME 9.5 FL (7.4-10.4); MONOCYTES # (AUTO) 0.8 X 10^3 (0.0-1.0); MONOCYTES % (AUTO) 8 % (0-12); NEUTROPHILS # (AUTO) 7.1 X 10^3 (1.8-7.8); NEUTROPHILS % (AUTO) 67 % (42-75); PLATELET COUNT 358 10^3/uL (130-400); WHITE BLOOD COUNT 10.7 10^3/uL (4.3-11.0)
[2018-12-16 11:02] LABS: ALANINE AMINOTRANSFERASE 18 U/L (0-55); ALBUMIN 4.1 GM/DL (3.2-4.5); ALKALINE PHOSPHATASE 49 U/L (40-136); BILIRUBIN,TOTAL 0.4 MG/DL (0.1-1.0); BUN/CREATININE RATIO 21; CALCIUM 9.7 MG/DL (8.5-10.1); CARBON DIOXIDE 21 MMOL/L (21-32); CHLORIDE 102 MMOL/L (98-107); CREATININE SERUM 0.72 MG/DL (0.60-1.30); GFR ESTIMATED > 60; GLUCOSE 99 MG/DL (70-105); POTASSIUM 4.4 MMOL/L (3.6-5.0); SODIUM 134 MMOL/L (135-145); TOTAL PROTEIN 7.3 GM/DL (6.4-8.2)
[2019-03-07 10:37] LABS: BASOPHILS # (AUTO) 0.1 10^3/uL (0.0-0.1); BASOPHILS % (AUTO) 1 % (0-10); EOSINOPHILS # (AUTO) 0.2 10^3/uL (0.0-0.3); EOSINOPHILS % (AUTO) 3 % (0-10); HEMATOCRIT 38 % (35-52); HEMOGLOBIN 12.3 G/DL (11.5-16.0); LYMPHOCYTES # (AUTO) 2.1 X 10^3 (1.0-4.0); LYMPHOCYTES % (AUTO) 29 % (12-44); MEAN CORPUSCULAR HEMOGLOBIN 30 PG (25-34); MEAN CORPUSCULAR HGB CONC 32 G/DL (32-36); MEAN CORPUSCULAR VOLUME 93 FL (80-99); MEAN PLATELET VOLUME 9.6 FL (7.4-10.4); MONOCYTES # (AUTO) 0.5 X 10^3 (0.0-1.0); MONOCYTES % (AUTO) 7 % (0-12); NEUTROPHILS # (AUTO) 4.2 X 10^3 (1.8-7.8); NEUTROPHILS % (AUTO) 60 % (42-75); PLATELET COUNT 346 10^3/uL (130-400); RED CELL DISTRIBUTION WIDTH 12.6 % (10.0-14.5)
[2019-03-07 10:55] LABS: ALANINE AMINOTRANSFERASE 14 U/L (0-55); ALBUMIN 4.1 GM/DL (3.2-4.5); ALKALINE PHOSPHATASE 50 U/L (40-136); BILIRUBIN,TOTAL 0.2 MG/DL (0.1-1.0); BUN/CREATININE RATIO 15; CALCIUM 9.2 MG/DL (8.5-10.1); CARBON DIOXIDE 23 MMOL/L (21-32); CHLORIDE 105 MMOL/L (98-107); GFR ESTIMATED > 60; GLUCOSE 73 MG/DL (70-105); SODIUM 135 MMOL/L (135-145); TOTAL PROTEIN 7.2 GM/DL (6.4-8.2)
[~2019-03-11 15:03] MED LIST changes: -OMEP20CA12; +OMEP20CA13
[2019-03-13] MEDS ORDERED: METO-370 PO (09:43)
[2019-03-13] MEDS ORDERED: TRAZ-222 PO (09:43)
== END 2019-03-16 | disposition home or self-care (01) ==
LOC: ONC 15:03
PROVIDERS: ATTEND Internal Medicine Hematology & Oncology
DX: D50.9 Iron deficiency anemia, unspecified (principal)
CPT/HCPCS: 36415; 80053; 82728; 85025; 99213

== ENCOUNTER 2019-03-13 05:38 | Outpatient (CLI) | payer OTHER ==
[~2019-03-13] VITALS: Ht 157.5 cm; Wt 64.0 kg
[2019-03-13 09:17] VITALS: BP 126/80
[2019-03-13] MEDS ORDERED: METO-370 PO (09:43)
[2019-03-13] MEDS ORDERED: TRAZ-222 PO (09:43)
== END 2019-03-13 09:44 | disposition home or self-care (01) ==
LOC: PREOP 05:38
PROVIDERS: ATTEND Otolaryngology Otolaryngology/Facial Plastic Surgery
DX: Z01.818 Encounter for other preprocedural examination (principal)
CPT/HCPCS: 87081

== ENCOUNTER 2019-03-20 06:17 | Day surgery (SDC) | payer OTHER ==
[~2019-03-20] VITALS: Ht 157.5 cm; Wt 64.0 kg
[2019-03-20] VITALS (10 sets, daily range): BP systolic 91–126; BP diastolic 58–82
[2019-03-20] MEDS: LACTATED RINGERS 1,000 ML IV PRN ×2 (06:35→08:21)
[2019-03-20] MEDS ORDERED: fentaNYL INJECTION 100 MCG/2 ML AMP ONE (06:40)
[2019-03-20] MEDS ORDERED: DEXAMETHASONE 10 MG/ML (DECADRON) 1 ML VIAL ONE (06:40)
[2019-03-20] MEDS ORDERED: proPOfol 200 MG/20 ML (DIPRIVAN) VIAL IV ONE (06:40)
[2019-03-20] MEDS ORDERED: ONDANSETRON 4 MG/2 ML (SDV) Z0FRAN ONE (06:40)
[2019-03-20] MEDS ORDERED: MUPIROCIN 2% OINT 22 GM (BACTROBAN) TUBE ONE (06:40)
[2019-03-20] MEDS ORDERED: LIDOCAINE/EPI 1%-1:100,000 (XYLOCAINE) 20ML ONE (06:41)
[2019-03-20] MEDS ORDERED: MIDAZOLAM 2 MG/2 ML (VERSED) VIAL ONE (06:41)
[2019-03-20] MEDS ORDERED: LIDOCAINE PF 2% 5 ML (XYLOCAINE) VIAL ONE (06:44)
--- NOTE | 2019-03-20 07:06 | Progress Note-Pre Operative ---
Pre-Operative Progress Note H&P Reviewed The H&P was reviewed, patient examined and no changes noted. Date Seen by Provider: Mar 20, 2019 Time Seen by Provider: 06:45 Date H&P Reviewed: Mar 20, 2019 Time H&P Reviewed: 06:45 Pre-Operative Diagnosis: Left PArotid Mass ALEXA DAVIES MD Mar 20, 2019 07:06
[2019-03-20] MEDS ORDERED: SEVOFLURANE (ULTANE) 15 ML INHAL SOLN ONE ×4 (07:47→09:24)
[2019-03-20] MEDS ORDERED: SUCCINYLCHOLINE INJ 100 MG/5 ML SYR ONE (09:00)
--- NOTE | 2019-03-20 09:42 | Progress Note-Post Operative ---
Post-Operative Progess Note Surgeon (s)/Allergist/Immunologist (s) Surgeon ALEXA DAVIES MD Allergist/Immunologist n/a Pre-Operative Diagnosis Left PArotid Mass Post-Operative Diagnosis same Post-Op Procedure Note Date of Procedure: Mar 20, 2019 Name of Procedure Performed: Left Parotidectomy with Preservaton of the FAcial Nerve Description & Findings Description and Findings: n/a Anesthesia Type get Estimated Blood Loss minimal Packing none. Specimen(s) collected/removed left parotid-pleomorphic adenoma 1 number 7 CONNIE ALEXA Cedeño MD Mar 20, 2019 09:42
[2019-03-20] MEDS ORDERED: ACETAMINOPHEN 325 MG TABLET PO PRN (09:45)
[2019-03-20] MEDS ORDERED: BSS 15 ML ONE (09:48)
[2019-03-20] MEDS ORDERED: morphine INJ 10 MG/ML 1ML (SYR OR VIAL) IVP ONE (10:00)
[2019-03-20] MEDS ORDERED: PROMETHAZINE INJ 25 MG/ML (PHENERGAN) AMP IVP ONE (10:00)
[2019-03-20] MEDS ORDERED: ONDANSETRON 4 MG/2 ML (SDV) Z0FRAN IVP PRN (10:00)
[2019-03-20] MEDS ORDERED: morphine INJ 10 MG/ML 1ML (SYR OR VIAL) ONE (10:18)
--- NOTE | 2019-03-20 11:00 | Anesthesia-General Post-Op ---
General Patient Condition Mental Status/LOC: Same as Preop Cardiovascular: Satisfactory Nausea/Vomiting: Absent Respiratory: Satisfactory Pain: Controlled Complications: Absent Post Op Complications Complications None Follow Up Care/Instructions Patient Instructions None needed. Anesthesia/Patient Condition Patient Condition Patient is doing well, no complaints, stable vital signs, no apparent adverse anesthesia problems. No complications reported per nursing. MANINDER HURTADO CRNA Mar 20, 2019 11:00
[2019-03-20] MEDS: HYDROcodone/APAP 5 MG/325 MG (LORTAB) TAB PO PRN ×3 (12:54→23:26)
--- NOTE | 2019-03-20 17:26 | Progress Note ---
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
[2019-03-20] MEDS: D5 1/2 NS W/KCL 20 MEQ/L 1,000 ML IV SCH (19:54)
[2019-03-20] MEDS: GENTAMICIN 0.3% OPHTH SOLN 5 ML OP SCH (20:11)
[2019-03-20] MEDS: CYCLOBENZAPRINE 10 MG (FLEXERIL) TAB PO SCH (20:11)
[2019-03-20] MEDS: clonazePAM 0.5 MG (KlonoPIN) TAB PO SCH (20:11)
[2019-03-20] MEDS ORDERED: traZODone 50 MG (DESYREL) TAB PO SCH (21:00)
[2019-03-20] MEDS ORDERED: ATORVASTATIN 20 MG (LIPITOR) TABLET PO SCH (21:00)
[2019-03-21] MEDS: D5 1/2 NS W/KCL 20 MEQ/L 1,000 ML IV SCH (02:23)
[2019-03-21 04:53] VITALS: BP 96/65
[2019-03-21] MEDS: HYDROcodone/APAP 5 MG/325 MG (LORTAB) TAB PO PRN ×2 (05:14→09:01)
--- NOTE | 2019-03-21 07:00 | Progress Note ---
Standard Progress Note Progress Notes/Assess & Plan Date Seen by a Provider: Mar 21, 2019 Time Seen by a Provider: 06:00 Progress/Assessment & Plan ENT-Kelsie Doing well post-op Drain 15cc since surgery Face-nerve intact-lower lip may be alittle weak-hard to tel lwith her teeth out incision dry and intact will observe-probable discharge in am after drain removal may take home meds c/o of right eye irritation since surgery-will start on garamycin opth soln 3 d rops bid to right eye for 3 days-label and send home with patient diet as ernesto will see early in am to take out drain ENT-Kelsie-03/21 doing well Face-mild weakness lower lip otherwise completely normal Right Ktg-kamben-ojr drops to take home for eye incision dry and intac- Yossi-minimal drainage-Drain removed will dischage after breakfast RTC-1 week discharge isntructiosn given lable and send home bactroban ointment with patient use bid along incision line discharge instructions in chart ALEXA DAVIES MD Mar 21, 2019 07:00
[2019-03-21 08:00] VITALS: BP 94/58
--- NOTE | 2019-03-21 08:57 | NUR ---
Initial visit: The pt describes strong rapport with Dr. Holder and said everything has gone well, except that she had a restless night of pain. She said her pain is now under control. I offered prayer and active listening. The pt is [employer]. 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
--- NOTE | 2019-03-21 08:58 | Anesthesia-General Post-Op ---
General Patient Condition Mental Status/LOC: Same as Preop Cardiovascular: Satisfactory Nausea/Vomiting: Absent Respiratory: Satisfactory Pain: Controlled Complications: Absent Post Op Complications Complications None Follow Up Care/Instructions Patient Instructions None needed. Anesthesia/Patient Condition Patient Condition Patient is doing well, no complaints, stable vital signs, no apparent adverse anesthesia problems. No complications reported per nursing. SOFI SCALES CRNA Mar 21, 2019 08:58
[2019-03-21] MEDS: CYCLOBENZAPRINE 10 MG (FLEXERIL) TAB PO SCH (09:01)
[2019-03-21] MEDS: clonazePAM 0.5 MG (KlonoPIN) TAB PO SCH (09:01)
[2019-03-21] MEDS: GENTAMICIN 0.3% OPHTH SOLN 5 ML OP SCH (09:02)
[2019-03-21 09:38] VITALS: BP 94/58
[2019-03-21] MEDS ORDERED: meTOproloL SUCCINATE 50 MG (TOPROL XL) TAB PO SCH (19:00)
[2019-03-21] MEDS ORDERED: MUPIROCIN 2% OINT 22 GM (BACTROBAN) TUBE TOP SCH (21:00)
== END 2019-03-21 10:00 | disposition home or self-care (01) ==
LOC: SDC 06:17 → 4TH 10:50 → SDC 03-21 10:00
PROVIDERS: ATTEND Otolaryngology Otolaryngology/Facial Plastic Surgery
DX: D11.0 Benign neoplasm of parotid gland (principal); K11.8 Other diseases of salivary glands; K27.9 Peptic ulcer, site unspecified, unspecified as acute or chronic, without hemorrhage or perforation; I21.3 ST elevation (STEMI) myocardial infarction of unspecified site; E78.5 Hyperlipidemia, unspecified; F32.9 Major depressive disorder, single episode, unspecified; F41.9 Anxiety disorder, unspecified; D64.9 Anemia, unspecified; Z79.82 Long term (current) use of aspirin; Z79.891 Long term (current) use of opiate analgesic; Z79.899 Other long term (current) drug therapy; I20.8 Other forms of angina pectoris
CPT/HCPCS: 84703; 88307; 88331

== ENCOUNTER → 2019-06-09 | Outpatient (CLI) | payer OTHER ==
--- NOTE | 2019-06-09 15:34 | Diagnostic Imaging Report ---
PROCEDURE: US Non-ob pelvis comp/trans. TECHNIQUE: Multiple real-time grayscale images were obtained of the pelvis in various projections endovaginally. Transabdominal imaging was also performed. INDICATION: Abnormal uterine bleeding. FINDINGS: Uterus measures 7.6 x 5.7 x 4.5 cm. There is an area of heterogeneity in the anterior uterus near the fundus measuring up to approximately 3 cm. This most likely represents a fibroid. Endometrium is 11 mm in thickness. Left ovary was not visualized. Right ovary measures 3.9 x 2.2 x 2.1 cm. There is blood flow to the right ovary. No adnexal mass or free fluid is seen. IMPRESSION: Probable uterine fibroid. There is also mild endometrial thickening of 11 mm. No other significant abnormality is detected. Dictated by: Dictated on workstation # [id number]
== END ==
LOC: RAD 11:53
PROVIDERS: ATTEND Obstetrics & Gynecology
DX: N93.9 Abnormal uterine and vaginal bleeding, unspecified (principal); R93.89 Abnormal findings on diagnostic imaging of other specified body structures
CPT/HCPCS: 76830; 76856

== ENCOUNTER 2019-06-11 15:00 | Outpatient (CLI) | payer OTHER ==
[~2019-06-11] VITALS: Ht 157.5 cm; Wt 64.1 kg
== END 2019-06-11 15:08 | disposition home or self-care (01) ==
LOC: PREOP 15:00
PROVIDERS: ATTEND Obstetrics & Gynecology
DX: Z01.818 Encounter for other preprocedural examination (principal)

== ENCOUNTER 2019-06-16 06:31 | Day surgery (SDC) | payer OTHER ==
[~2019-06-16] VITALS: Ht 157 cm; Wt 64.1 kg
[2019-06-16] VITALS (12 sets, daily range): BP systolic 96–130; BP diastolic 65–77
[2019-06-16] MEDS ORDERED: LACTATED RINGERS 1,000 ML IV PRN (06:45)
--- NOTE | 2019-06-16 07:19 | Progress Note-Pre Operative ---
Pre-Operative Progress Note H&P Reviewed The H&P was reviewed, patient examined and no changes noted. Date Seen by Provider: Jun 16, 2019 Time Seen by Provider: 07:19 Date H&P Reviewed: Jun 16, 2019 Time H&P Reviewed: 07:19 Pre-Operative Diagnosis: ALEXA DON DO Jun 16, 2019 07:19 POS
[2019-06-16 07:30] LABS: BASOPHILS # (AUTO) 0.1 10^3/uL (0.0-0.1); BASOPHILS % (AUTO) 1 % (0-10); EOSINOPHILS # (AUTO) 0.2 10^3/uL (0.0-0.3); EOSINOPHILS % (AUTO) 3 % (0-10); HEMATOCRIT 40 % (35-52); HEMOGLOBIN 13.5 G/DL (11.5-16.0); LYMPHOCYTES # (AUTO) 1.9 X 10^3 (1.0-4.0); LYMPHOCYTES % (AUTO) 22 % (12-44); MEAN CORPUSCULAR HEMOGLOBIN 31 PG (25-34); MEAN CORPUSCULAR HGB CONC 34 G/DL (32-36); MEAN CORPUSCULAR VOLUME 93 FL (80-99); MEAN PLATELET VOLUME 10.2 FL (7.4-10.4); MONOCYTES # (AUTO) 0.8 X 10^3 (0.0-1.0); MONOCYTES % (AUTO) 10 % (0-12); NEUTROPHILS # (AUTO) 5.6 X 10^3 (1.8-7.8); NEUTROPHILS % (AUTO) 64 % (42-75); PLATELET COUNT 310 10^3/uL (130-400); RED CELL DISTRIBUTION WIDTH 14.6 % (10.0-14.5); WHITE BLOOD COUNT 8.6 10^3/uL (4.3-11.0)
[2019-06-16] MEDS ORDERED: D5 LR IV SOLUTION 1,000 ML IV SCH (07:31)
[2019-06-16] MEDS ORDERED: ACHD5005 PO (07:34)
[2019-06-16] MEDS ORDERED: IBUP-1773 PO (07:34)
--- NOTE | 2019-06-16 07:37 | Discharge Inst-Women's Service ---
Discharge Inst-Women's Serv Depart Medication/Instructions New, Converted or Re-Newed RX: RX on Chart Problems Reviewed?: Yes Consults/Follow Up Additional Follow Up: Yes Orders/Referrals Dr. Field in 2-3 weeks Activity Activity: Activity as Tolerated Driving Instructions: You May Drive (do not drive while taking hydrocodone) NO SMOKING: NO SMOKING Nothing Inside Vagina: No Douching, No [place], No Tampons Diet Discharge Diet: No Restrictions Symptoms to Report to : Bleeding Excessive, Pain Increased, Fever Over 101 Degrees F, Vaginal Bleeding Increase, Questions/Concerns For Any Problems or Questions: Contact Your Physician Skin/Wound Care Stitches/Phil Campbell/Dermabond: Care of Stitches (l) ALEXA FIELD DO Jun 16, 2019 07:37 POS
[2019-06-16] MEDS ORDERED: ONDANSETRON 4 MG/2 ML (SDV) Z0FRAN IVP PRN ×2 (07:45→10:15)
[2019-06-16] MEDS ORDERED: KETOROLAC 30 MG/ML VIAL IVP ONE ×2 (07:45→10:15)
[2019-06-16] MEDS ORDERED: HYDROcodone/APAP 5 MG/325 MG (LORTAB) TAB PO PRN (07:45)
[2019-06-16] MEDS ORDERED: LIDOCAINE PF 2% 5 ML (XYLOCAINE) VIAL ONE (07:48)
[2019-06-16] MEDS ORDERED: proPOfol 200 MG/20 ML (DIPRIVAN) VIAL IV ONE (07:48)
[2019-06-16] MEDS ORDERED: DEXAMETHASONE 10 MG/ML (DECADRON) 1 ML VIAL ONE (07:48)
[2019-06-16] MEDS ORDERED: SEVOFLURANE (ULTANE) 15 ML INHAL SOLN ONE (07:48)
[2019-06-16] MEDS ORDERED: ONDANSETRON 4 MG/2 ML (SDV) Z0FRAN ONE (07:48)
[2019-06-16] MEDS ORDERED: MIDAZOLAM 2 MG/2 ML (VERSED) VIAL ONE (07:49)
[2019-06-16] MEDS ORDERED: fentaNYL INJECTION 100 MCG/2 ML AMP ONE (07:49)
[2019-06-16] MEDS ORDERED: BUPIVACAINE 0.25% 30 ML (SENSORCAINE) VIAL ONE (09:49)
[2019-06-16] MEDS ORDERED: fentaNYL INJECTION 100 MCG/2 ML AMP IVP ONE (10:15)
[2019-06-16] MEDS ORDERED: MEPERIDINE (DEMEROL) INJ 50 MG/ML IVP ONE (10:15)
--- NOTE | 2019-06-16 12:05 | Anesthesia-General Post-Op ---
General Patient Condition Mental Status/LOC: Same as Preop Cardiovascular: Satisfactory Nausea/Vomiting: Absent Respiratory: Satisfactory Pain: Controlled Complications: Absent Post Op Complications Complications None Follow Up Care/Instructions Patient Instructions None needed. Anesthesia/Patient Condition Patient Condition Patient is doing well, no complaints, stable vital signs, no apparent adverse anesthesia problems. No complications reported per nursing. MANINDER HURTADO CRNA Jun 16, 2019 12:05 POS
--- NOTE | 2019-06-16 13:45 | OPERATIVE REPORT ---
DATE OF SERVICE: PREOPERATIVE DIAGNOSIS: A 48-year-old female with abnormal uterine bleeding. POSTOPERATIVE DIAGNOSIS: A 48-year-old female with abnormal uterine bleeding. PROCEDURE: D and C. SURGEON: Alexa Field DO SNOWBOARD INSTRUCTOR: None. ANESTHESIA: LMA. ESTIMATED BLOOD LOSS: Minimal. URINE OUTPUT: 200 mL clear at the end of the procedure. FLUIDS: 700 mL lactated Ringer's solution. FINDINGS: Grossly normal external female genitalia including cervix and vaginal mucosa. SPECIMEN SENT: Endometrial curettings. INDICATIONS FOR PROCEDURE: This 48-year-old female with a consultation to me for heavy abnormal uterine bleeding that has been going on for the past six months, have gotten progressively worse for the past year. I discussed with the patient in the office endometrial sampling versus proceeding with D and C. She has a history of chronic blood loss anemia due to this bleeding. After all of her questions were answered pertaining to the risks of the procedure as well as recovery and followup, consent was obtained in the preoperative area and the patient was taken to the operating room. OPERATIVE REPORT IN DETAIL: Once in the operating room, anesthesia was found to be adequate, placed in dorsal lithotomy position, prepped and draped in normal sterile fashion. A timeout was performed. A weighted speculum inserted to the patient's vagina. Right angled retractor was used to visualize the cervix, which was grasped at 12 o'clock position using a long Allis clamp. I then performed paracervical block at 3 and 9 o'clock positions using 0.25% Marcaine with 5 mL were injected at each site. Care was taken to aspirate before injecting. I then gently sound the uterine cavity depth was found to be 8 cm. I then gently dilated the cervix using Hegar dilators to maximum dilatation approximately 8 mm at which point I performed a gentle endometrial curetting and collect endometrial tissue and sent as endometrial curettings. I then removed the Allis clamp and the other instruments from the patient's vagina. The patient tolerated the procedure well and sent to recovery in stable condition. Lap and sponge counts were correct at the end of the procedure. Instrument counts correct as well. Straight catheterization was performed after the procedure was complete. Job ID: [id number] DocumentID: [id number] Dictated Date: 06/16/2019 10:13:49 Surface Supervisor Date: 06/16/2019 13:43:47 Dictated By: ALEXA FIELD DO
== END 2019-06-16 12:25 | disposition home or self-care (01) ==
LOC: SDC 06:31
PROVIDERS: ATTEND Obstetrics & Gynecology
DX: N93.9 Abnormal uterine and vaginal bleeding, unspecified (principal); D50.9 Iron deficiency anemia, unspecified; I10 Essential (primary) hypertension; G62.9 Polyneuropathy, unspecified; F41.9 Anxiety disorder, unspecified; Z98.51 Tubal ligation status; Z79.891 Long term (current) use of opiate analgesic; Z79.899 Other long term (current) drug therapy; Z80.3 Family history of malignant neoplasm of breast; Z83.3 Family history of diabetes mellitus
CPT/HCPCS: 36415; 84703; 85025; 86850; 86900; 86901; 87081; 88305; 94664

== ENCOUNTER 2019-06-25 14:59 | Outpatient (RCR) | payer OTHER ==
[2019-04-16 11:05] LABS: BASOPHILS # (AUTO) 0.1 10^3/uL (0.0-0.1); BASOPHILS % (AUTO) 1 % (0-10); EOSINOPHILS # (AUTO) 0.4 10^3/uL (0.0-0.3); EOSINOPHILS % (AUTO) 5 % (0-10); HEMATOCRIT 38 % (35-52); HEMOGLOBIN 12.4 G/DL (11.5-16.0); LYMPHOCYTES # (AUTO) 2.1 X 10^3 (1.0-4.0); LYMPHOCYTES % (AUTO) 25 % (12-44); MEAN CORPUSCULAR HEMOGLOBIN 29 PG (25-34); MEAN CORPUSCULAR HGB CONC 33 G/DL (32-36); MEAN CORPUSCULAR VOLUME 89 FL (80-99); MEAN PLATELET VOLUME 10.1 FL (7.4-10.4); MONOCYTES # (AUTO) 0.8 X 10^3 (0.0-1.0); MONOCYTES % (AUTO) 9 % (0-12); NEUTROPHILS # (AUTO) 5.2 X 10^3 (1.8-7.8); NEUTROPHILS % (AUTO) 61 % (42-75); PLATELET COUNT 345 10^3/uL (130-400); RED CELL DISTRIBUTION WIDTH 13.2 % (10.0-14.5); WHITE BLOOD COUNT 8.6 10^3/uL (4.3-11.0)
[2019-04-16 11:23] LABS: ALANINE AMINOTRANSFERASE 15 U/L (0-55); ALBUMIN 4.1 GM/DL (3.2-4.5); ALKALINE PHOSPHATASE 61 U/L (40-136); BILIRUBIN,TOTAL 0.2 MG/DL (0.1-1.0); BUN/CREATININE RATIO 10; CALCIUM 9.3 MG/DL (8.5-10.1); CARBON DIOXIDE 26 MMOL/L (21-32); CHLORIDE 101 MMOL/L (98-107); CREATININE SERUM 0.78 MG/DL (0.60-1.30); GFR ESTIMATED > 60; GLUCOSE 91 MG/DL (70-105); POTASSIUM 3.8 MMOL/L (3.6-5.0); SODIUM 135 MMOL/L (135-145); TOTAL PROTEIN 7.5 GM/DL (6.4-8.2)
[2019-05-21 10:49] LABS: BASOPHILS % (AUTO) 0 % (0-10); EOSINOPHILS # (AUTO) 0.2 10^3/uL (0.0-0.3); EOSINOPHILS % (AUTO) 2 % (0-10); HEMATOCRIT 39 % (35-52); HEMOGLOBIN 12.9 G/DL (11.5-16.0); LYMPHOCYTES # (AUTO) 2.1 X 10^3 (1.0-4.0); LYMPHOCYTES % (AUTO) 27 % (12-44); MEAN CORPUSCULAR HEMOGLOBIN 31 PG (25-34); MEAN CORPUSCULAR HGB CONC 33 G/DL (32-36); MEAN CORPUSCULAR VOLUME 93 FL (80-99); MEAN PLATELET VOLUME 10.3 FL (7.4-10.4); MONOCYTES # (AUTO) 0.5 X 10^3 (0.0-1.0); MONOCYTES % (AUTO) 7 % (0-12); NEUTROPHILS # (AUTO) 4.9 X 10^3 (1.8-7.8); NEUTROPHILS % (AUTO) 64 % (42-75); PLATELET COUNT 252 10^3/uL (130-400); RED CELL DISTRIBUTION WIDTH 15.4 % (10.0-14.5); WHITE BLOOD COUNT 7.7 10^3/uL (4.3-11.0)
[2019-06-23 14:38] LABS: BASOPHILS # (AUTO) 0.1 10^3/uL (0.0-0.1); BASOPHILS % (AUTO) 1 % (0-10); EOSINOPHILS # (AUTO) 0.4 10^3/uL (0.0-0.3); EOSINOPHILS % (AUTO) 5 % (0-10); HEMATOCRIT 38 % (35-52); HEMOGLOBIN 12.9 G/DL (11.5-16.0); LYMPHOCYTES # (AUTO) 2.6 X 10^3 (1.0-4.0); LYMPHOCYTES % (AUTO) 31 % (12-44); MEAN CORPUSCULAR HEMOGLOBIN 32 PG (25-34); MEAN CORPUSCULAR HGB CONC 34 G/DL (32-36); MEAN CORPUSCULAR VOLUME 93 FL (80-99); MEAN PLATELET VOLUME 9.9 FL (7.4-10.4); MONOCYTES # (AUTO) 0.7 X 10^3 (0.0-1.0); MONOCYTES % (AUTO) 9 % (0-12); NEUTROPHILS # (AUTO) 4.7 X 10^3 (1.8-7.8); NEUTROPHILS % (AUTO) 55 % (42-75); PLATELET COUNT 314 10^3/uL (130-400); RED CELL DISTRIBUTION WIDTH 13.6 % (10.0-14.5); WHITE BLOOD COUNT 8.5 10^3/uL (4.3-11.0)
[2019-06-23 14:56] LABS: ALANINE AMINOTRANSFERASE 16 U/L (0-55); ALBUMIN 4.3 GM/DL (3.2-4.5); ALKALINE PHOSPHATASE 56 U/L (40-136); BILIRUBIN,TOTAL 0.1 MG/DL (0.1-1.0); BUN/CREATININE RATIO 16; CALCIUM 9.2 MG/DL (8.5-10.1); CARBON DIOXIDE 19 MMOL/L (21-32); CHLORIDE 106 MMOL/L (98-107); CREATININE SERUM 0.74 MG/DL (0.60-1.30); GFR ESTIMATED > 60; GLUCOSE 96 MG/DL (70-105); POTASSIUM 3.7 MMOL/L (3.6-5.0); SODIUM 137 MMOL/L (135-145); TOTAL PROTEIN 7.8 GM/DL (6.4-8.2)
[~2019-06-25 14:59] MED LIST changes: +ACHD5005 PO; +FERRIC CARBOXYMALTOSE (CANCER) 750 MG in NS (IVPB) CANCER CENTER 250 ML IV SCH; +IBUP-1773 PO
== END 2019-07-15 | disposition home or self-care (01) ==
LOC: ONC 14:59
PROVIDERS: ATTEND Internal Medicine Hematology & Oncology
DX: D50.9 Iron deficiency anemia, unspecified (principal)
CPT/HCPCS: 36415; 80053; 82728; 85025; 96365; 99213

== ENCOUNTER 2019-07-24 05:30 | Outpatient (CLI) | payer OTHER ==
[~2019-07-24] VITALS: Ht 157 cm; Wt 63.3 kg
[~2019-07-24 05:30] MED LIST changes: -FERRIC CARBOXYMALTOSE (CANCER) 750 MG in NS (IVPB) CANCER CENTER 250 ML IV SCH
[2019-07-28] MEDS ORDERED: HYDR-34 PO (10:51)
[2019-07-28] MEDS ORDERED: DOCU100C37 PO (10:51)
[2019-07-28] MEDS ORDERED: IBUP-844 PO (10:51)
[2019-07-28] MEDS ORDERED: SIME80TA16 PO (10:51)
== END 2019-07-24 11:27 | disposition home or self-care (01) ==
LOC: PREOP 05:30
PROVIDERS: ATTEND Obstetrics & Gynecology
DX: Z01.818 Encounter for other preprocedural examination (principal)

== ENCOUNTER 2019-09-24 14:40 | Outpatient (RCR) | payer OTHER ==
[2019-08-06 10:13] LABS: BASOPHILS # (AUTO) 0.1 10^3/uL (0.0-0.1); BASOPHILS % (AUTO) 1 % (0-10); EOSINOPHILS # (AUTO) 0.5 10^3/uL (0.0-0.3); EOSINOPHILS % (AUTO) 5 % (0-10); HEMATOCRIT 40 % (35-52); LYMPHOCYTES # (AUTO) 1.9 X 10^3 (1.0-4.0); LYMPHOCYTES % (AUTO) 18 % (12-44); MEAN CORPUSCULAR HEMOGLOBIN 31 PG (25-34); MEAN CORPUSCULAR HGB CONC 32 G/DL (32-36); MEAN CORPUSCULAR VOLUME 95 FL (80-99); MEAN PLATELET VOLUME 9.6 FL (7.4-10.4); MONOCYTES # (AUTO) 1.2 X 10^3 (0.0-1.0); MONOCYTES % (AUTO) 12 % (0-12); NEUTROPHILS # (AUTO) 6.9 X 10^3 (1.8-7.8); NEUTROPHILS % (AUTO) 65 % (42-75); PLATELET COUNT 430 10^3/uL (130-400); RED CELL DISTRIBUTION WIDTH 12.6 % (10.0-14.5); WHITE BLOOD COUNT 10.5 10^3/uL (4.3-11.0)
[2019-09-18 14:27] LABS: BASOPHILS # (AUTO) 0.1 10^3/uL (0.0-0.1); BASOPHILS % (AUTO) 1 % (0-10); EOSINOPHILS # (AUTO) 0.7 10^3/uL (0.0-0.3); EOSINOPHILS % (AUTO) 8 % (0-10); HEMATOCRIT 38 % (35-52); HEMOGLOBIN 12.4 G/DL (11.5-16.0); LYMPHOCYTES # (AUTO) 2.8 X 10^3 (1.0-4.0); LYMPHOCYTES % (AUTO) 31 % (12-44); MEAN CORPUSCULAR HEMOGLOBIN 31 PG (25-34); MEAN CORPUSCULAR HGB CONC 33 G/DL (32-36); MEAN CORPUSCULAR VOLUME 95 FL (80-99); MONOCYTES # (AUTO) 0.6 X 10^3 (0.0-1.0); MONOCYTES % (AUTO) 7 % (0-12); NEUTROPHILS # (AUTO) 4.8 X 10^3 (1.8-7.8); NEUTROPHILS % (AUTO) 54 % (42-75); PLATELET COUNT 336 10^3/uL (130-400); RED CELL DISTRIBUTION WIDTH 12.6 % (10.0-14.5)
[2019-09-18 14:53] LABS: ALANINE AMINOTRANSFERASE 16 U/L (0-55); ALBUMIN 4.4 GM/DL (3.2-4.5); ALKALINE PHOSPHATASE 60 U/L (40-136); BILIRUBIN,TOTAL 0.2 MG/DL (0.1-1.0); BUN/CREATININE RATIO 15; CALCIUM 9.2 MG/DL (8.5-10.1); CARBON DIOXIDE 24 MMOL/L (21-32); CHLORIDE 103 MMOL/L (98-107); CREATININE SERUM 0.95 MG/DL (0.60-1.30); GFR ESTIMATED > 60; GLUCOSE 92 MG/DL (70-105); POTASSIUM 3.6 MMOL/L (3.6-5.0); SODIUM 138 MMOL/L (135-145); TOTAL PROTEIN 7.8 GM/DL (6.4-8.2)
[~2019-09-24 14:40] MED LIST changes: -CLAR-19; +CLAR-31; -CLON0.5T13 PO; +CLON0.5T4 PO; +DOCU100C37 PO; +HYDR-34 PO; +IBUP-844 PO; -MELA3TAB PO; +MELA3TAB39 PO; -METO-370 PO; +METO50TA7 PO; -OMEP20CA13; +OMEP20CA18; +SIME80TA16 PO; -TRAZ-222 PO; +TRZ50T PO
== END 2019-11-04 | disposition home or self-care (01) ==
LOC: ONC 14:40
PROVIDERS: ATTEND Internal Medicine Hematology & Oncology
DX: D50.9 Iron deficiency anemia, unspecified (principal); R10.9 Unspecified abdominal pain; Z90.710 Acquired absence of both cervix and uterus
CPT/HCPCS: 80053; 82728; 85025; 99213

== ENCOUNTER → 2020-03-26 | Outpatient (CLI) | payer OTHER ==
--- NOTE | 2020-03-26 16:20 | Diagnostic Imaging Report ---
INDICATION: Palpable lump in left breast. COMPARISON: Correlation is made with prior mammograms from 12/11/2018 and 11/15/2017. EXAMINATION: 2D and 3D bilateral diagnostic mammography was performed with CAD. The current study was also evaluated with a Computer Aided Detection (CAD) system. FINDINGS: Both breasts are heterogeneously dense, limiting the sensitivity of mammography. A BB marker was placed at the area of palpable abnormality in the upper outer left breast. Rounded masslike density in the upper outer left breast posterior depth persists and has been shown to represent a fibroadenoma. No new mass is detected. No malignant appearing microcalcifications are seen. A marker clip is identified in the upper retroareolar left breast. Axillae are unremarkable. IMPRESSION: Stable bilateral mammograms with no mammographic features suspicious for malignancy. Even so, directed sonographic interrogation of the area of palpable abnormality in the upper outer left breast is recommended and will be performed today. ACR BI-RADS Category 0: Incomplete. (Needs additional imaging evaluation). Result letter will be mailed to the patient. Note: At least 10% of breast cancer is not imaged by mammography. Dictated on workstation # [id number]
--- NOTE | 2020-03-26 16:22 | Diagnostic Imaging Report ---
INDICATION: Palpable lump in left breast. COMPARISON: Diagnostic mammogram from earlier the same day as well as prior left breast ultrasounds dating back to 2018. FINDINGS: The circumscribed solid mass at the 1:30 location of the left breast, 5 cm from the nipple, is again noted. This is most consistent with a fibroadenoma. This measures approximately 2.6 x 1.3 x 1.7 cm. This compares with 2.2 x 1.5 x 1.2 cm on prior. Slight differences in the long axis measurement appears to be owing to slight differences in measurement technique. No significant change has occurred. No new abnormality is identified. IMPRESSION: Stable appearance to left breast fibroadenoma at the 1:30 location, 5 cm from the nipple, when compared with ultrasound dating back to 2019. This does correspond to the patient's palpable abnormality. ACR BI-RADS Category 2: Benign findings. Result letter will be mailed to the patient. Note: At least 10% of breast cancer is not imaged by mammography. Dictated on workstation # [id number]
== END ==
LOC: RAD 13:57
PROVIDERS: ATTEND Family Medicine
DX: D24.2 Benign neoplasm of left breast (principal); Z98.890 Other specified postprocedural states
CPT/HCPCS: 76642; 77066; G0279; 77062

== ENCOUNTER 2020-03-29 13:40 | Outpatient (RCR) | payer OTHER ==
[2020-03-26 09:48] LABS: BASOPHILS # (AUTO) 0.1 10^3/uL (0.0-0.1); BASOPHILS % (AUTO) 1 % (0-10); EOSINOPHILS # (AUTO) 0.2 10^3/uL (0.0-0.3); EOSINOPHILS % (AUTO) 2 % (0-10); HEMATOCRIT 40 % (35-52); HEMOGLOBIN 13.4 G/DL (11.5-16.0); LYMPHOCYTES # (AUTO) 2.3 X 10^3 (1.0-4.0); LYMPHOCYTES % (AUTO) 26 % (12-44); MEAN CORPUSCULAR HEMOGLOBIN 31 PG (25-34); MEAN CORPUSCULAR HGB CONC 34 G/DL (32-36); MEAN CORPUSCULAR VOLUME 92 FL (80-99); MEAN PLATELET VOLUME 10.5 FL (7.4-10.4); MONOCYTES # (AUTO) 0.7 X 10^3 (0.0-1.0); MONOCYTES % (AUTO) 7 % (0-12); NEUTROPHILS # (AUTO) 5.7 X 10^3 (1.8-7.8); NEUTROPHILS % (AUTO) 64 % (42-75); PLATELET COUNT 301 10^3/uL (130-400)
[2020-03-26 10:18] LABS: ALANINE AMINOTRANSFERASE 13 U/L (0-55); ALBUMIN 4.4 GM/DL (3.2-4.5); ALKALINE PHOSPHATASE 54 U/L (40-136); BILIRUBIN,TOTAL 0.3 MG/DL (0.1-1.0); BUN/CREATININE RATIO 13; CALCIUM 9.8 MG/DL (8.5-10.1); CARBON DIOXIDE 21 MMOL/L (21-32); CHLORIDE 106 MMOL/L (98-107); GFR ESTIMATED > 60; GLUCOSE 96 MG/DL (70-105); POTASSIUM 4.2 MMOL/L (3.6-5.0); SODIUM 135 MMOL/L (135-145); TOTAL PROTEIN 8.2 GM/DL (6.4-8.2)
== END 2020-06-24 | disposition home or self-care (01) ==
LOC: ONC 13:40
PROVIDERS: ATTEND Internal Medicine Hematology & Oncology
DX: D50.0 Iron deficiency anemia secondary to blood loss (chronic) (principal); R10.9 Unspecified abdominal pain; Z90.710 Acquired absence of both cervix and uterus
CPT/HCPCS: 80053; 82728; 85025; 99213

== ENCOUNTER → 2020-09-22 | Outpatient (CLI) | payer OTHER ==
[2020-09-22 12:18] LABS: HEMOGLOBIN 11.8 g/dL (11.5-16.0); WHITE BLOOD COUNT 9.4 10^3/uL (4.3-11.0)
== END ==
LOC: LAB 11:57
PROVIDERS: ATTEND Family Medicine
DX: D64.9 Anemia, unspecified (principal)
CPT/HCPCS: 36415; 85027

== ENCOUNTER → 2020-10-04 | Outpatient (CLI) | payer OTHER ==
[~2020-10-04] MED LIST changes: +TMSL.4C PO
--- NOTE | 2020-10-04 16:53 | Diagnostic Imaging Report ---
PROCEDURE: CT abdomen and pelvis without contrast. TECHNIQUE: Multiple contiguous axial images were obtained through the abdomen and pelvis without the use of intravenous contrast. Auto Exposure Controls were utilized during the CT exam to meet ALARA standards for radiation dose reduction. INDICATION: Hematuria and dysuria. There may be small hiatal hernia. Unenhanced images of the liver, gallbladder and pancreas are unremarkable. There are multiple calcified granulomas in the spleen. No adrenal gland abnormality is identified. There is no evidence of renal calculus or hydronephrosis. No ureteric stone or dilatation is identified. There is no evidence of bladder calculus. No free fluid is seen within the abdomen or pelvis. There is mild aortoiliac athetotic calcification. Moderate amount of stool is present in the right colon with [id number] amount of stool throughout the transverse colon. There is no evidence of transition point to indicate an obstruction. IMPRESSION: Probable constipation without acute abnormality seen within the abdomen or pelvis. Dictated by: Dictated on workstation # [id number]
== END ==
LOC: RAD 16:04
PROVIDERS: ATTEND Urology
DX: R31.29 Other microscopic hematuria (principal); R30.0 Dysuria
CPT/HCPCS: 74176

== ENCOUNTER 2020-10-07 11:46 | Emergency (ER) | payer OTHER ==
[~2020-10-07] VITALS: Ht 157 cm; Wt 63.0 kg
[~2020-10-07 11:46] MED LIST changes: -TMSL.4C PO
--- NOTE | 2020-10-07 12:08 | ED GU-Female ---
General Chief Complaint: - Urinary Stated Complaint: DIFFICULTY URINATING,FEVER,ABD/BACK PAIN Nursing Triage Note: ARRIVED VIA WC TO ROOM 08. STATES SHE HAS NOT BEEN ABLE TO PEE WELL X2 DAYS AND CAN TAKE HER UP TO 15 MINUTES TO START A STREAM. COMPLAINS OF LOWER ABD PAIN. SCHEDULED FOR A SURGERY WITH HAL/PARRIS IN THE FUTURE. Nursing Sepsis Screen: No Definite Risk History of Present Illness Date Seen by Provider: Oct 07, 2020 Time Seen by Provider: 12:00 Initial Comments 51-year-old female with ongoing genitourinary problems presents for inability to urinate and dysuria. She has been seeing Dr. Hong and Dr. Canada and they had recommended a surgery but she has not scheduled it yet. She did not contact them today, she called Dr. Theodore and he referred her here. She has recurrent UTIs and was started on Augmentin yesterday for recurrent one. She did not have a UA prior to the antibiotics being started. She was on Augmentin approximately 2 weeks prior to yesterday. She reports urgency to urinate but then taking 10 to 15 minutes before she is able to void. She does not drink much water or other fluids. Today she has had a small cup of juice and that is her only oral intake, she has not eaten any solid food, but she doesn't usually eat in the morning. She denies n/v/d, last BM yesterday She has 11 mL on bladder scan. She denies flank pain, she complains of mild mid low back pain. She had an old CT scan of her abdomen and pelvis on 10/04/2020 that showed constipation and no other significant abnormalities. She reports a chronic history of constipation. She has had a previous robotic hysterectomy. Since that surgery she has been having problems with her bladder. She reports a fever at home of 10 1-102 last evening and this morning. She has been taking Tylenol and ibuprofen intermittently for the fever. Her last dose of Tylenol was at zero 930 this morning. She is afebrile on presentation. Timing/Duration: getting worse, intermittent Severity/Quality: moderate Location: suprapubic, other (low back) Radiation: none Activities at Onset: none Prior Genitourinary Problems: similar symptoms Associated Symptoms: No diaphoresis; dysuria, fever/chills; No loss of bladder control; lower back pain; No nausea/vomiting, No polyuria, No urinary frequency Allergies and Home Medications Allergies Coded Allergies: No Known Drug Allergies (Unverified , 07/24/19) Home Medications Atorvastatin Calcium 20 Mg Tablet, 20 MG PO HS, (Reported) Clonazepam 0.5 Mg Tablet, 0.5 MG PO TID, (Reported) Cyclobenzaprine HCl 10 Mg Tablet, 10 MG PO TID, (Reported) Docusate Sodium 100 Mg Capsule, 100 MG PO BID PRN for CONSTIPATION-1ST LINE Prescribed by: ALEXA FIELD on 07/28/19 1051 Hydrocodone Bit/Acetaminophen 1 Ea Tablet, 2 EA PO Q6H PRN for Pain-See Instructions Prescribed by: ALEXA FIELD on 07/28/19 1051 Ibuprofen 600 Mg Tablet, 600 MG PO Q6H Prescribed by: ALEXA FIELD on 07/28/19 1051 Metoprolol Succinate 50 Mg Tab.er.24h, 50 MG PO DAILY@1900, (Reported) Simethicone 80 Mg Tab.chew, 40 MG PO TID PRN for INDIGESTION 2ND LINE Prescribed by: ALEXA FIELD on 07/28/19 1051 Tamsulosin HCl 0.4 Mg Cap, 0.4 MG PO DAILY Prescribed by: KRISTIN CANCINO on 10/07/20 1323 Trazodone HCl 50 Mg Tablet, 50 MG PO HS, (Reported) Patient Home Medication List Home Medication List Reviewed: Yes Review of Systems Review of Systems Constitutional: no symptoms reported, see HPI Genitourinary: see HPI, dysuria, frequency, pain, urgency : No All Other Systemes Reviewed Negative Unless Noted: Yes Past Ysgmzmz-Emxbal-Itwisz Hx Past Med/Social Hx: Reviewed Nursing Past Med/Soc Hx Patient Social History Type Used: Electronic/Vapor Former Smoker, Quit: Aug 13, 2017 2nd Hand Smoke Exposure: Yes Recent Infectious Disease Expo: No Recent Hopitalizations: No Immunizations Up To Date Date of Influenza Vaccine: May 14, 2019 Seasonal Allergies Seasonal Allergies: Yes Past Medical History Surgeries: Yes (jaw bone sx x2, tumor from neck, D&C) Tubal Ligation Respiratory: No Cardiac: Yes (HEART MURMER. 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 History: Tubal Ligation Genitourinary: No Gastrointestinal: Yes Chronic Constipation, Ulcer Musculoskeletal: Yes Arthritis Endocrine: No HEENT: Yes (WEARS GLASSES) Loss of Vision: Bilateral Cancer: No Psychosocial: Yes Anxiety Integumentary: No Blood Disorders: Yes (low iron) Adverse Reaction/Blood Tranf: No Family Medical History CELIAC SPRU 19 MOTHER CELIAC SPRU 19 MOTHER Celiac sprue Diabetes mellitus 19 FATHER FH: heart disease G8 BROTHER Physical Exam Vital Signs Vital Signs - First Documented 10/07/20 11:50 Temp 36.5 Pulse 99 Resp 16 B/P (MAP) 114/73 (87) Pulse Ox 97 O2 Delivery Room Air Capillary Refill : Less Than 3 Seconds Height, Weight, BMI Height: 5'2.00" Weight: 141lbs. 0.0oz. 63.259617bu; 25.00 BMI Method:Stated General Appearance: WD/WN, mild distress HEENT: PERRL/EOMI, normal ENT inspection, TMs normal, pharynx normal, other (Oral mucosa pink and dry) Neck: non-tender, full range of motion, supple, normal inspection Cardiovascular: normal peripheral pulses, regular rate, rhythm Respiratory: chest non-tender, lungs clear, normal breath sounds Gastrointestinal: normal bowel sounds, non tender, soft Back: normal inspection; No CVA tenderness (R), No CVA tenderness (L), No decreased range of motion, No muscle spasm, No vertebral tenderness; other (tenderness reported subjectively in mid low back, no TTP or with ROM) Extremities: normal range of motion, non-tender, normal inspection Neurologic/Psychiatric: no motor/sensory deficits, alert, normal mood/affect, oriented x 3 Progress/Results/Core Measures Suspected Sepsis Recent Fever Within 48 Hours: No Infection Criteria Present: Suspected New Infection New/Unexplained Altered Menta: No Sepsis Screen: No Definite Risk SIRS Temperature: Pulse: 99 Respiratory Rate: 16 Laboratory Tests 10/07/20 12:29: White Blood Count 16.2H Blood Pressure 114 /73 Mean: 87 Laboratory Tests 10/07/20 12:29: Creatinine 0.78, Platelet Count 282, Total Bilirubin 0.3 Results/Orders Lab Results Laboratory Tests Test 10/07/20 12:29 10/07/20 13:11 Range/Units White Blood Count 16.2 H 4.3-11.0 10^3/uL Red Blood Count 3.94 3.80-5.11 10^6/uL Hemoglobin 12.0 11.5-16.0 g/dL Hematocrit 36 35-52 % Mean Corpuscular Volume 91 80-99 fL Mean Corpuscular Hemoglobin 31 25-34 pg Mean Corpuscular Hemoglobin Concent 34 32-36 g/dL Red Cell Distribution Width 13.2 10.0-14.5 % Platelet Count 282 130-400 10^3/uL Mean Platelet Volume 10.3 9.0-12.2 fL Immature Granulocyte % (Auto) 1 % Neutrophils (%) (Auto) 77 H 42-75 % Lymphocytes (%) (Auto) 11 L 12-44 % Monocytes (%) (Auto) 11 0-12 % Eosinophils (%) (Auto) 0 0-10 % Basophils (%) (Auto) 0 0-10 % Neutrophils # (Auto) 12.5 H 1.8-7.8 10^3/uL Lymphocytes # (Auto) 1.7 1.0-4.0 10^3/uL Monocytes # (Auto) 1.8 H 0.0-1.0 10^3/uL Eosinophils # (Auto) 0.1 0.0-0.3 10^3/uL Basophils # (Auto) 0.1 0.0-0.1 10^3/uL Immature Granulocyte # (Auto) 0.1 0.0-0.1 10^3/uL Neutrophils % (Manual) 80 % Lymphocytes % (Manual) 15 % Monocytes % (Manual) 5 % Hypersegmented Neutrophils SLIGHT Blood Morphology Comment NORMAL Sodium Level 135 135-145 MMOL/L Potassium Level 3.7 3.6-5.0 MMOL/L Chloride Level 107 98-107 MMOL/L Carbon Dioxide Level 19 L 21-32 MMOL/L Anion Gap 9 5-14 MMOL/L Blood Urea Nitrogen 8 7-18 MG/DL Creatinine 0.78 0.60-1.30 MG/DL Estimat Glomerular Filtration Rate > 60 BUN/Creatinine Ratio 10 Glucose Level 100 70-105 MG/DL Calcium Level 8.9 8.5-10.1 MG/DL Corrected Calcium 9.0 8.5-10.1 MG/DL Total Bilirubin 0.3 0.1-1.0 MG/DL Aspartate Amino Transf (AST/SGOT) 14 5-34 U/L Alanine Aminotransferase (ALT/SGPT) 13 0-55 U/L Alkaline Phosphatase 72 40-136 U/L C-Reactive Protein High Sensitivity 6.02 H 0.00-0.50 MG/DL Total Protein 7.7 6.4-8.2 GM/DL Albumin 3.9 3.2-4.5 GM/DL Urine Color YELLOW Urine Clarity CLEAR Urine pH 6.0 5-9 Urine Specific [place] 1.025 H 1.016-1.022 Urine Protein 2+ H NEGATIVE Urine Glucose (UA) NEGATIVE NEGATIVE Urine Ketones TRACE H NEGATIVE Urine Nitrite NEGATIVE NEGATIVE Urine Bilirubin 1+ H NEGATIVE Urine Urobilinogen 0.2 < = 1.0 MG/DL Urine Leukocyte Esterase 1+ H NEGATIVE Urine RBC (Auto) 2+ H NEGATIVE Urine RBC NONE /HPF Urine WBC >100 H /HPF Urine Squamous Epithelial Cells 10-25 H /HPF Urine Crystals NONE /LPF Urine Bacteria FEW H /HPF Urine Casts NONE /LPF Urine Mucus NEGATIVE /LPF Urine Culture Indicated YES My Orders Orders - KRISTIN CANCINO Ua Culture If Indicated (10/07/20 12:06) Cbc With Automated Diff (10/07/20 12:20) Comprehensive Metabolic Panel (10/07/20 12:20) Hs C Reactive Protein (10/07/20 12:20) Ed Iv/Invasive Line Start (10/07/20 12:20) Ns Iv 1000 Ml (Sodium Chloride 0.9%) (10/07/20 12:30) Phenazopyridine Tablet (Pyridium Tablet) (10/07/20 12:30) Ketorolac Injection (Toradol Injection) (10/07/20 12:22) Manual Differential (10/07/20 12:29) Tamsulosin Capsule (Flomax Capsule) (10/07/20 12:56) Ceftriaxone For Iv Use (Rocephin For I (10/07/20 13:30) Water (Sterile) For Injection (Sterile W (10/07/20 13:37) Ceftriaxone For Iv Use (Rocephin For I (10/07/20 13:37) Urine Culture (10/07/20 13:11) Medications Given in ED Current Medications Medications Dose Ordered Sig/Shanon Route Start Time Stop Time Status Last Admin Dose Admin Ceftriaxone Sodium 2000 mg/ Sterile Water 20 ml @ 240 mls/hr ONCE ONCE IV 10/07/20 13:30 3/11/21 13:54 DC 10/07/20 13:46 240 MLS/HR Phenazopyridine HCl 100 mg ONCE ONCE PO 10/07/20 12:30 10/07/20 12:31 DC 10/07/20 12:31 100 MG Vital Signs/I&O 10/07/20 10/07/20 11:50 14:22 Temp 36.5 Pulse 99 87 Resp 16 16 B/P (MAP) 114/73 (87) 103/70 Pulse Ox 97 96 O2 Delivery Room Air Room Air Capillary Refill : Less Than 3 Seconds Blood Pressure Mean: 87 Progress Note : Time: 12:00 Progress Note Patient seen and evaluated, will give normal saline 1 L IV, Toradol 30 mg IV, and check labs. 1250 patient able to void she reports it easier time starting her stream. UA results. White blood cell count elevated 16.9. Remainder of labs essentially normal. 1315 UA reviewed, attempted to reach Dr. Hong at his office and by mobile phone. Will get Rocephin 2 g IV. 1400 patient reports her symptoms are improving. She is continue to increase her water intake. Discharge instructions and return precautions reviewed with her. Diagnostic Imaging Diagonstic Imaging: CT Plain Films/CT/US/NM/MRI: abdomen, pelvis Comments NAME: [facility] REC#: [id number] PT STATUS: REG CLI : 1970 PHYSICIAN: MARILU HONG MD ADMIT DATE: 10/04/20/RAD Signed Date of Exam:10/04/20 CT ABDOMEN/PELVIS WO PROCEDURE: CT abdomen and pelvis without contrast. TECHNIQUE: Multiple contiguous axial images were obtained through the abdomen and pelvis without the use of intravenous contrast. Auto Exposure Controls were utilized during the CT exam to meet ALARA standards for radiation dose reduction. INDICATION: Hematuria and dysuria. There may be small hiatal hernia. Unenhanced images of the liver, gallbladder and pancreas are unremarkable. There are multiple calcified granulomas in the spleen. No adrenal gland abnormality is identified. There is no evidence of renal calculus or hydronephrosis. No ureteric stone or dilatation is identified. There is no evidence of bladder calculus. No free fluid is seen within the abdomen or pelvis. There is mild aortoiliac athetotic calcification. Moderate amount of stool is present in the right colon with [id number] amount of stool throughout the transverse colon. There is no evidence of transition point to indicate an obstruction. IMPRESSION: Probable constipation without acute abnormality seen within the abdomen or pelvis. Dictated by: Dictated on workstation # [id number] Dict: 10/04/20 1646 Trans: 10/04/20 1701 [facility] [id number] Interpreted by: MARY ROGER MD Electronically signed by: MARY ROGER MD 10/04/20 170 Reviewed: Reviewed by Me Departure Impression Primary Impression: Urinary tract infection Qualified Codes: N30.01 - Acute cystitis with hematuria Additional Impressions: Dysuria Constipation Qualified Codes: K59.00 - Constipation, unspecified Disposition: HOME, SELF-CARE Condition: Improved Departure-Patient Inst. Decision time for Depature: 14:00 Referrals: BE THEODORE DO (PCP/Family) Primary Care Physician Patient Instructions: Urinary Tract Infection, Adult (DC), Dysuria, Adult (DC) Add. Discharge Instructions: Continue to take your iron antibiotics as prescribed. Alternate between Tylenol 650 mg and ibuprofen 600 mg every 4 hours for pain or fever. Increase water intake, 16 ounces every 2 hours while awake. Increase walking, for 5 to 10 minutes every 2-[address] Hong for follow-up if symptoms are not improving or worsen. Return to the emergency department if symptoms worsen or for new, urgent healthcare. All discharge instructions reviewed with patient and/or family. Voiced understanding. Scripts Tamsulosin HCl (Flomax) 0.4 Mg Cap 0.4 MG PO DAILY, #30 CAP 0 Refills Prov: KRISTIN CANCINO 10/07/20 Copy Copies To 1: BE THEODORE DO; BARBARA CANADA MD; MARILU HONG MD, AMY ARNP Oct 07, 2020 12:08
[2020-10-07] MEDS ORDERED: KETOROLAC 30 MG/ML VIAL IVP STA (12:22)
[2020-10-07] MEDS ORDERED: PHENAZOPYRIDINE 100 MG (PYRIDIUM) TABLET PO ONE (12:30)
[2020-10-07] MEDS ORDERED: NS IV 1000 ML 1,000 ML IV SCH (12:30)
[2020-10-07 12:37] LABS: BASOPHILS # (AUTO) 0.1 10^3/uL (0.0-0.1); BASOPHILS % (AUTO) 0 % (0-10); EOSINOPHILS # (AUTO) 0.1 10^3/uL (0.0-0.3); EOSINOPHILS % (AUTO) 0 % (0-10); HEMATOCRIT 36 % (35-52); LYMPHOCYTES # (AUTO) 1.7 10^3/uL (1.0-4.0); LYMPHOCYTES % (AUTO) 11 % (12-44); MEAN CORPUSCULAR HEMOGLOBIN 31 pg (25-34); MEAN CORPUSCULAR HGB CONC 34 g/dL (32-36); MEAN CORPUSCULAR VOLUME 91 fL (80-99); MEAN PLATELET VOLUME 10.3 fL (9.0-12.2); MONOCYTES # (AUTO) 1.8 10^3/uL (0.0-1.0); MONOCYTES % (AUTO) 11 % (0-12); NEUTROPHILS # (AUTO) 12.5 10^3/uL (1.8-7.8); NEUTROPHILS % (AUTO) 77 % (42-75); PLATELET COUNT 282 10^3/uL (130-400); WHITE BLOOD COUNT 16.2 10^3/uL (4.3-11.0)
[2020-10-07 12:48] LABS: ALBUMIN 3.9 GM/DL (3.2-4.5); CHLORIDE 107 MMOL/L (98-107); POTASSIUM 3.7 MMOL/L (3.6-5.0); SODIUM 135 MMOL/L (135-145)
[2020-10-07 12:49] LABS: CALCIUM 8.9 MG/DL (8.5-10.1)
[2020-10-07 12:50] LABS: GLUCOSE 100 MG/DL (70-105); TOTAL PROTEIN 7.7 GM/DL (6.4-8.2)
[2020-10-07 12:51] LABS: CARBON DIOXIDE 19 MMOL/L (21-32)
[2020-10-07 12:52] LABS: BILIRUBIN,TOTAL 0.3 MG/DL (0.1-1.0)
[2020-10-07 12:54] LABS: ALKALINE PHOSPHATASE 72 U/L (40-136); CREATININE SERUM 0.78 MG/DL (0.60-1.30); GFR ESTIMATED > 60
[2020-10-07 12:55] LABS: BUN/CREATININE RATIO 10
[2020-10-07] MEDS ORDERED: TAMSULOSIN 0.4 MG (FLOMAX) CAP PO STA (12:56)
[2020-10-07 12:57] LABS: ALANINE AMINOTRANSFERASE 13 U/L (0-55)
[2020-10-07 13:20] LABS: CLARITY,URINE CLEAR; COLOR,URINE YELLOW; GLUCOSE, URINE (UA) NEGATIVE (NEGATIVE); KETONES,URINE TRACE (NEGATIVE); LEUKOCYTE ESTERASE ,URINE 1+ (NEGATIVE); NITRITE,URINE NEGATIVE (NEGATIVE); PROTEIN,URINE 2+ (NEGATIVE)
[2020-10-07] MEDS ORDERED: TMSL.4C PO (13:23)
[2020-10-07 13:26] LABS: HYPERSEGMENTED NEUT SLIGHT; LYMPHOCYTES % (MANUAL) 15 %; MONOCYTES % (MANUAL) 5 %; NEUTROPHILS % (MANUAL) 80 %
[2020-10-07 13:27] LABS: RBC MORPH NORMAL
[2020-10-07] MEDS ORDERED: cefTRIAXone FOR IV USE 2,000 MG in WATER (STERILE) FOR INJECTION 20 ML IV ONE (13:30)
[2020-10-07] MEDS ORDERED: cefTRIAXone 2 GM/20 ML for IV (ROCEPHIN) ONE (13:37)
[2020-10-07] MEDS ORDERED: WATER (STERILE) FOR INJECTION 20 ML ONE (13:37)
[2020-10-07 13:44] LABS: BILIRUBIN,URINE 1+ (NEGATIVE)
[2020-10-07 13:45] LABS: BACTERIA,URINE FEW /HPF; WBC,URINE >100 /HPF
[2020-10-07 14:22] VITALS: BP 103/70
== END 2020-10-07 14:22 | disposition home or self-care (01) ==
LOC: EDUNIT# 11:46 → ER 11:48
DX: N30.01 Acute cystitis with hematuria (principal); K59.00 Constipation, unspecified; I10 Essential (primary) hypertension; F41.9 Anxiety disorder, unspecified; Z79.2 Long term (current) use of antibiotics; Z86.018 Personal history of other benign neoplasm; Z98.51 Tubal ligation status; Z77.22 Contact with and (suspected) exposure to environmental tobacco smoke (acute) (chronic)
CPT/HCPCS: 36415; 80053; 81000; 85007; 85027; 86141; 87088

== ENCOUNTER 2020-11-04 05:35 | Outpatient (CLI) | payer OTHER ==
[~2020-11-04] VITALS: Ht 157.5 cm; Wt 66.3 kg
[~2020-11-04 05:35] MED LIST changes: +TMSL.4C PO
[2020-11-04] MEDS ORDERED: RT-ALBUINH IH (09:25)
[2020-11-04] MEDS ORDERED: IBUP-1773 PO (09:29)
[2020-11-04] MEDS ORDERED: ESTR2TAB4 PO (09:29)
[2020-11-04] MEDS ORDERED: TMSL.4C PO (09:29)
[2020-11-04] MEDS ORDERED: CLON1TAB13 PO (09:29)
[2020-11-04] MEDS ORDERED: METO50TA7 PO (09:29)
[2020-11-04] MEDS ORDERED: ROSU5TAB13 PO (09:29)
--- NOTE | 2020-11-04 15:36 | Progress Note-Pre Operative ---
Pre-Operative Progress Note H&P Reviewed The H&P was reviewed, patient examined and no changes noted. Date Seen by Provider: Nov 05, 2020 Time Seen by Provider: 14:00 Date H&P Reviewed: Nov 05, 2020 Time H&P Reviewed: 14:00 Pre-Operative Diagnosis: Vaginal prolapse and ORESTES BARBARA BERMAN MD Nov 04, 2020 15:36
--- NOTE | 2020-11-04 15:37 | Progress Note-Post Operative ---
Post-Operative Progess Note Surgeon (s)/Manager Clinical Pharmacy (s) Surgeon BARBARA BERMAN MD Manager Clinical Pharmacy: RN Pre-Operative Diagnosis Vaginal prolapse and ORESTES Post-Operative Diagnosis same Procedure & Operative Findings Date of Procedure 11/04/20 Procedure Performed/Findings A&P repairs with Dr. Guajardo doing PVS and cysto Anesthesia Type GETA Estimated Blood Loss Estimated blood loss (mL): 100CC Specimens/Packing Specimens Removed None Packing: Kerlix packing in the vagina BARBARA BERMAN MD Nov 04, 2020 15:37
[2020-11-05] MEDS ORDERED: OXYC1TAB87 PO (17:14)
[2020-11-05] MEDS ORDERED: DOCU-143 PO (17:14)
== END 2020-11-04 09:47 | disposition home or self-care (01) ==
LOC: PREOP 05:35
PROVIDERS: ATTEND Obstetrics & Gynecology
DX: Z01.812 Encounter for preprocedural laboratory examination (principal); N81.10 Cystocele, unspecified; N39.3 Stress incontinence (female) (male)

== ENCOUNTER 2020-11-05 11:47 | Day surgery (SDC) | payer OTHER ==
[2020-11-05] VITALS (9 sets, daily range): BP systolic 93–116; BP diastolic 53–74
[~2020-11-05] VITALS: Ht 159 cm; Wt 64.2 kg
[~2020-11-05 11:47] MED LIST changes: +CLON1TAB13 PO; +ESTR2TAB4 PO; +ROSU5TAB13 PO; +RT-ALBUINH IH
--- NOTE | 2020-11-05 12:33 | Progress Note-Pre Operative ---
Pre-Operative Progress Note H&P Reviewed The H&P was reviewed, patient examined and no changes noted. Date Seen by Provider: Nov 05, 2020 Time Seen by Provider: 12:33 Date H&P Reviewed: Nov 05, 2020 Time H&P Reviewed: 12:33 Pre-Operative Diagnosis: MARILU CAVANAUGH MD Nov 05, 2020 12:33
--- NOTE | 2020-11-05 12:34 | Progress Note-Post Operative ---
Post-Operative Progess Note Surgeon (s)/Freelance Director (s) Surgeon MARILU HONG MD Freelance Director: BARBARA BERMAN MD Pre-Operative Diagnosis ORESTES Post-Operative Diagnosis SAME Procedure & Operative Findings Date of Procedure 11/05/20 Procedure Performed/Findings PVS AND CYSTO Anesthesia Type GENERAL Estimated Blood Loss Estimated blood loss (mL): NEGLIGIBLE Specimens/Packing Specimens Removed NONE PackinG ESTRACE VAG PACK MARILU HONG MD Nov 05, 2020 12:34
[2020-11-05] MEDS: LACTATED RINGERS 1,000 ML IV PRN ×2 (12:37→14:48)
[2020-11-05] MEDS ORDERED: ceFAZolin INJECTION 1,000 MG in WATER (STERILE) FOR INJECTION 10 ML IV ONE (12:45)
[2020-11-05] MEDS ORDERED: proPOfol 200 MG/20 ML (DIPRIVAN) VIAL IV ONE (12:54)
[2020-11-05] MEDS ORDERED: ONDANSETRON 4 MG/2 ML (SDV) Z0FRAN ONE (12:54)
[2020-11-05] MEDS ORDERED: fentaNYL INJ 100 MCG/2 ML AMP ONE ×2 (12:54→15:55)
[2020-11-05] MEDS ORDERED: SEVOFLURANE (ULTANE) 15 ML INHAL SOLN ONE ×3 (12:54→14:44)
[2020-11-05] MEDS ORDERED: LIDOCAINE PF 2% 5 ML (XYLOCAINE) VIAL ONE (12:54)
[2020-11-05] MEDS ORDERED: MIDAZOLAM 2 MG/2 ML (VERSED) VIAL ONE (12:54)
[2020-11-05] MEDS ORDERED: ROCURONIUM 10 MG/ML 5 ML SYRINGE IV ONE (12:54)
[2020-11-05] MEDS ORDERED: GLYCOPYRROLATE 0.2 MG/ML (ROBINUL) 2 ML VIAL ONE (12:54)
[2020-11-05] MEDS ORDERED: NEOSTIGMINE 3 MG/3 ML VIAL ONE (12:54)
[2020-11-05 13:18] LABS: BASOPHILS # (AUTO) 0.1 10^3/uL (0.0-0.1); BASOPHILS % (AUTO) 1 % (0-10); EOSINOPHILS # (AUTO) 0.3 10^3/uL (0.0-0.3); EOSINOPHILS % (AUTO) 3 % (0-10); HEMATOCRIT 40 % (35-52); HEMOGLOBIN 12.5 g/dL (11.5-16.0); LYMPHOCYTES # (AUTO) 2.5 10^3/uL (1.0-4.0); LYMPHOCYTES % (AUTO) 22 % (12-44); MEAN CORPUSCULAR HEMOGLOBIN 30 pg (25-34); MEAN CORPUSCULAR HGB CONC 31 g/dL (32-36); MEAN CORPUSCULAR VOLUME 95 fL (80-99); MEAN PLATELET VOLUME 10.5 fL (9.0-12.2); MONOCYTES % (AUTO) 8 % (0-12); NEUTROPHILS # (AUTO) 7.5 10^3/uL (1.8-7.8); NEUTROPHILS % (AUTO) 65 % (42-75); PLATELET COUNT 300 10^3/uL (130-400); WHITE BLOOD COUNT 11.4 10^3/uL (4.3-11.0)
[2020-11-05 13:45] LABS: BASOPHILS % (MANUAL) 0 %; EOSINOPHILS % (MANUAL) 1 %; LYMPHOCYTES % (MANUAL) 29 %; MONOCYTES % (MANUAL) 7 %; NEUTROPHILS % (MANUAL) 63 %; RBC MORPH NORMAL
[2020-11-05] MEDS ORDERED: morphine INJ 10 MG/ML 1ML (SYR OR VIAL) IVP ONE (14:15)
[2020-11-05] MEDS ORDERED: HYDROmorphone 2 MG/ML VIAL (DILAUDID) IV ONE (14:15)
[2020-11-05] MEDS ORDERED: ONDANSETRON 4 MG/2 ML (SDV) Z0FRAN IVP PRN ×2 (14:15→16:00)
[2020-11-05] MEDS ORDERED: ESTRADIOL VAGINAL CREAM 42.5 GM (ESTRACE) VG ONE (14:29)
--- NOTE | 2020-11-05 15:24 | Anesthesia-General Post-Op ---
General Patient Condition Mental Status/LOC: Same as Preop Cardiovascular: Satisfactory Nausea/Vomiting: Absent Respiratory: Satisfactory Pain: Controlled Complications: Absent Post Op Complications Complications None Follow Up Care/Instructions Patient Instructions None needed. Anesthesia/Patient Condition Patient Condition Patient is doing well, no complaints, stable vital signs, no apparent adverse anesthesia problems. No complications reported per nursing. MANINDER HURTADO CRNA Nov 05, 2020 15:24
[2020-11-05] MEDS ORDERED: D5 LR IV SOLUTION 1,000 ML IV ONE (15:55)
[2020-11-05] MEDS ORDERED: KETOROLAC 30 MG/ML VIAL ONE (15:55)
[2020-11-05] MEDS ORDERED: ESTROGENS CONJ INJECTION 25 MG in WATER (STERILE) FOR INJECTION 5 ML IV ONE (16:00)
[2020-11-05] MEDS ORDERED: BENZOCAINE/MENTHOL (DERMOPLAST) 56 ML CAN TP PRN (16:00)
[2020-11-05] MEDS: fentaNYL INJ 100 MCG/2 ML AMP IVP PRN ×2 (16:05→22:07)
[2020-11-05] MEDS: KETOROLAC 30 MG/ML VIAL IVP SCH ×2 (16:05→22:10)
[2020-11-05] MEDS ORDERED: DOCU-143 PO (17:14)
[2020-11-05] MEDS ORDERED: OXYC1TAB87 PO (17:14)
[2020-11-05] MEDS: oxyCODONE/APAP 5/325MG (PERCOCET 5) TABLET PO PRN (20:21)
[2020-11-05] MEDS: D5 LR IV SOLUTION 1,000 ML IV SCH (20:28)
--- NOTE | 2020-11-05 21:58 | OPERATIVE REPORT ---
DATE OF SERVICE: 11/05/2020 PREOPERATIVE DIAGNOSIS: On my part, stress urinary incontinence. POSTOPERATIVE DIAGNOSIS: On my part, stress urinary incontinence. OPERATION PERFORMED: Pubovaginal sling and cystoscopy. SURGEON: Marilu Hong MD ANESTHESIA: General. OBSTETRICS GYNECOLOGY PHYSICIAN: Ascencion Canada MD COMPLICATIONS: None. DESCRIPTION OF PROCEDURE: After Dr. Canada performed the first part of his surgery that he will dictate, I inserted a Osullivan catheter draining clear urine. I passed the Desara One Sling device on both sides using the described technique. The sling was sitting nicely under the mid urethra with no twisting and no tension, passage of a curved hemostat easily between it and underlying tissue. I removed the Osullivan catheter to perform cystoscopy to confirm the integrity of the bladder, ureteral orifices, sphincter with no foreign body and the presence of the sling under the mid urethra. I left the bladder half full to perform a manual Valsalva maneuver after removing the cystoscope and it was negative. Reinserted the Osullivan catheter draining clear fluid. Estimated blood loss negligible and Dr. Canada proceeded with rest of his surgery that he will dictate. Job ID: [id number] DocumentID: [id number] Dictated Date: 11/05/2020 14:32:47 Equipment Tester Date: 11/05/2020 21:58:25 Dictated By: MARILU HONG MD
[2020-11-06 00:44] VITALS: BP 111/63
[2020-11-06] MEDS: oxyCODONE/APAP 5/325MG (PERCOCET 5) TABLET PO PRN ×3 (00:44→11:24)
--- NOTE | 2020-11-06 02:49 | OPERATIVE REPORT ---
DATE OF SERVICE: 11/05/2020 PREOPERATIVE DIAGNOSIS: Vaginal prolapse and stress urinary incontinence. POSTOPERATIVE DIAGNOSIS: Vaginal prolapse and stress urinary incontinence. OPERATIVE PROCEDURE: Anterior and posterior vaginal repairs with Dr. Guajardo performing a pubovaginal sling and cystoscopy. OPERATIVE DESCRIPTION: With the patient in the supine position under satisfactory general anesthesia, she was repositioned in dorsal lithotomy position in the Hayder stirrups and then prepped and draped in the usual fashion for vaginal surgery. Weighted speculum placed in posterior fornix of vagina. The anterior vaginal wall was grasped with two Andreea clamps near its midline. The vaginal wall was opened in the midline with Metzenbaum scissors. That opening was continued from approximately a 1.5 cm from the urethral meatus to the apex of the vagina. The bladder wall was carefully dissected off the muscularis of the vagina back to the pubic rami bilaterally and then 2-0 Vicryl suture was used to plicate the endopelvic fascia and the bladder wall and elevate the bladder back into the pelvis and lengthening the urethra. At this point, Dr. Guajardo assumed care of the patient and I remained to assist. Dr. Guajardo performed the pubovaginal sling and cystoscopy and then on completion, he left the Osullivan catheter to dependent drainage and I resumed care of the patient. Redundant anterior vaginal wall muscularis mucosa was removed sharply. Vaginal wall was closed with a running lock suture of 3-0 Vicryl Rapide. Good support was evident, and hemostasis was complete. The posterior repair was now affected by placing Andreea clamps on the perineum and hymenal ring at 5 and 7 o'clock position, an inverted triangle of skin was removed from the perineal body and upright triangle from the posterior vaginal floor. The rectovaginal space was entered sharply and dissected bluntly to the apex of the vagina. It was explored for an enterocele that was a small and that was easily reduced. The rectovaginal space was obliterated now with sutures of 2-0 Vicryl obliterating the rectovaginal space. The perineal body was restored with additional sutures of 2-0 Vicryl as well. Redundant posterior vaginal wall muscularis mucosa was removed sharply. Vaginal wall was then closed with a running locked suture of 3-0 Vicryl Rapide, that closure was continued past the hymenal ring down the perineal body then back up subcutaneous to the hymenal ring where it was tied. Digital rectal exam confirmed no stricture or stenosis of the rectum, no sutures into the rectal mucosa. Vaginal vault was now filled with Estrace vaginal cream and a pack of Kerlix gauze was placed. Osullivan catheter had been placed by Dr. Guajardo that was left to dependent drainage. Sponge and needle counts were correct on completion of procedure. Estimated blood loss was around 100 mL. The patient tolerated the procedure well and was uneventfully awakened from her general anesthesia and transferred to recovery room in stable condition. Job ID: [id number] DocumentID: [id number] Dictated Date: 11/05/2020 18:51:35 Systems Test Analyst Date: 11/06/2020 02:48:43 Dictated By: BARBARA BERMAN MD
[2020-11-06 03:43] VITALS: BP 112/55
[2020-11-06] MEDS: fentaNYL INJ 100 MCG/2 ML AMP IVP PRN (03:43)
[2020-11-06] MEDS: KETOROLAC 30 MG/ML VIAL IVP SCH (03:43)
[2020-11-06] MEDS: D5 LR IV SOLUTION 1,000 ML IV SCH (03:46)
[2020-11-06 08:35] VITALS: BP 103/53
--- NOTE | 2020-11-06 08:37 | Progress Note ---
Standard Progress Note Progress Notes/Assess & Plan Date Seen by a Provider: Nov 06, 2020 Time Seen by a Provider: 08:35 Progress/Assessment & Plan This patient is without complaint. She is ambulating, voiding, tolerating oral intake well and has good pain control. Patient denies chest pain, denies shortness of breath, denies nausea, and denies headache. Vital Signs Date Time Temp Pulse Resp B/P (MAP) Pulse Ox O2 Delivery O2 Flow Rate FiO2 11/06/20 03:43 36.7 72 18 112/55 (74) 97 Room Air 11/06/20 00:44 36.4 89 18 111/63 (79) 97 Room Air 11/05/20 20:21 36.7 98 18 93/55 (68) 96 Room Air 11/05/20 17:00 36.8 84 18 95/53 (67) 99 Room Air 11/05/20 15:58 100 Nasal Cannula 2.00 11/05/20 15:50 35.8 78 18 116/74 (88) 92 Room Air 11/05/20 15:50 Room Air 11/05/20 15:39 36.3 12 108/73 (85) 97 Room Air 11/05/20 15:30 OxyMask 10 11/05/20 15:30 12 110/69 (83) 100 OxyMask 10 11/05/20 15:20 12 111/74 (86) 100 OxyMask 10 11/05/20 15:15 OxyMask 10 11/05/20 15:10 12 101/70 (80) 99 OxyMask 10 11/05/20 15:02 18 105/66 (79) 99 OxyMask 10 11/05/20 14:55 36.6 16 104/70 (81) 97 OxyMask 10 11/05/20 14:55 OxyMask 10 I & O 11/06/20 07:00 Intake Total 2610 ml Output Total 1550 ml Balance 1060 ml Vital signs are stable. Patient is afebrile. The abdomen is benign. Extremities show no clubbing or cyanosis. There is no Homans' sign. Pelvic exam is deferred Assessment and plan postoperative day #1 doing well. Plan is for routine convalescent care today with discharge home when she is ambulating, voiding, tolerating oral intake and has good pain control Final Diagnosis Vaginal prolapse and stress urinary incontinence BARBARA BERMAN MD Nov 06, 2020 08:37
[2020-11-06] MEDS ORDERED: ESTRADIOL 1 MG TAB (ESTRACE) PO SCH (09:00)
[2020-11-06] MEDS ORDERED: DOCUSATE SODIUM 100 MG (COLACE) CAP PO SCH (09:00)
[2020-11-06] MEDS ORDERED: IBUPROFEN 800 MG (MOTRIN) TAB PO ONE (09:04)
[2020-11-06] MEDS ORDERED: IBUPROFEN 800 MG (MOTRIN) TAB PO SCH (16:00)
== END 2020-11-06 11:45 | disposition home or self-care (01) ==
LOC: SDC 11:47 → WS 15:50 → SDC 11-06 11:45
PROVIDERS: ATTEND Obstetrics & Gynecology
DX: N81.2 Incomplete uterovaginal prolapse (principal); N39.3 Stress incontinence (female) (male); N81.6 Rectocele; N95.9 Unspecified menopausal and perimenopausal disorder; N95.1 Menopausal and female climacteric states; I10 Essential (primary) hypertension; E78.00 Pure hypercholesterolemia, unspecified; E78.5 Hyperlipidemia, unspecified; Z87.891 Personal history of nicotine dependence; Z79.899 Other long term (current) drug therapy; Z98.51 Tubal ligation status; Z90.710 Acquired absence of both cervix and uterus
CPT/HCPCS: 57260; 57288; 85007; 85027; 87081; 94664; C1771; 36415

== ENCOUNTER → 2021-08-04 | Outpatient (CLI) | payer OTHER ==
[~2021-08-04] MED LIST changes: +CYCL10TA25 PO; -CYCL10TA9 PO; +DOCU-143 PO; +OXYC1TAB87 PO
[2021-08-04 13:37] LABS: BASOPHILS # (AUTO) 0.1 10^3/uL (0.0-0.1); BASOPHILS % (AUTO) 1 % (0-10); EOSINOPHILS # (AUTO) 0.1 10^3/uL (0.0-0.3); EOSINOPHILS % (AUTO) 2 % (0-10); HEMATOCRIT 42 % (35-52); HEMOGLOBIN 13.9 g/dL (11.5-16.0); LYMPHOCYTES # (AUTO) 2.7 10^3/uL (1.0-4.0); LYMPHOCYTES % (AUTO) 30 % (12-44); MEAN CORPUSCULAR HEMOGLOBIN 30 pg (25-34); MEAN CORPUSCULAR HGB CONC 33 g/dL (32-36); MEAN CORPUSCULAR VOLUME 92 fL (80-99); MONOCYTES # (AUTO) 0.6 10^3/uL (0.0-1.0); MONOCYTES % (AUTO) 6 % (0-12); NEUTROPHILS # (AUTO) 5.6 10^3/uL (1.8-7.8); NEUTROPHILS % (AUTO) 61 % (42-75); PLATELET COUNT 337 10^3/uL (130-400); WHITE BLOOD COUNT 9.1 10^3/uL (4.3-11.0)
[2021-08-04 13:54] LABS: ALBUMIN 4.3 GM/DL (3.2-4.5); BILIRUBIN,TOTAL 0.2 MG/DL (0.1-1.0); CALCIUM 9.3 MG/DL (8.5-10.1); CREATININE SERUM 0.74 MG/DL (0.60-1.30); POTASSIUM 3.7 MMOL/L (3.6-5.0); TOTAL PROTEIN 8.3 GM/DL (6.4-8.2)
== END ==
LOC: EDSTATUS 03-23 08:09 → ONC 13:16
PROVIDERS: ATTEND Internal Medicine Hematology & Oncology
DX: D50.9 Iron deficiency anemia, unspecified (principal); Z98.890 Other specified postprocedural states
CPT/HCPCS: 80053; 82728; 85025

== ENCOUNTER → 2021-08-08 | Outpatient (CLI) | payer OTHER | LOC: ONC 14:04 | PROVIDERS: ATTEND Internal Medicine Hematology & Oncology | DX: D50.9 Iron deficiency anemia, unspecified (principal); Z98.890 Other specified postprocedural states | CPT/HCPCS: 99213 ==

== ENCOUNTER → 2022-01-26 | Outpatient (CLI) | payer OTHER ==
[~2022-01-26] MED LIST changes: -ASPI-789 PO; +ASPI1TAB23 PO
--- NOTE | 2022-01-26 14:37 | Diagnostic Imaging Report ---
INDICATION: Palpable lump left breast. CORRELATION is made with diagnostic mammogram earlier the same day as well as a left breast ultrasound from 03/26/2020. Sonographic interrogation of the area of palpable abnormality upper outer left breast was performed. Previously noted circumscribed solid mass at the 1:30 - 2:30 location is again noted, 5 cm from the nipple. This measures 2.7 x 1.2 x 1.8 cm compared with 2.6 x 1.3 x 1.7 cm on prior exam 2 years earlier. No internal vascularity is seen. No new masses are detected. 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 After discussing with the patient, the patient states that this does cause significant pain. Patient was given the option to have the lesion biopsied with ultrasound guidance. The patient stated that she would like to have this done. ACR BI-RADS Category 2: Benign findings. Result letter will be mailed to the patient. Note: At least 10% of breast cancer is not imaged by mammography. Dictated by: Dictated on workstation # [id number]
--- NOTE | 2022-01-26 16:00 | Diagnostic Imaging Report ---
INDICATION: Palpable lump in the left breast. COMPARISON is made to prior mammograms from 03/26/2020 and 12/11/2018. 2-D and 3-D bilateral diagnostic mammography was performed with CAD. Rounded mass in the upper outer left breast posterior depth appears to be about the same. No new mass is detected. No malignant-appearing microcalcifications are identified. Axillae are unremarkable. IMPRESSION: BI-RADS Category 0 Stable mass in the upper outer left breast which likely accounts for the palpable abnormality. Even so, sonographic interrogation of this area is recommended and will be performed today. ACR BI-RADS Category 0: Incomplete. (Needs additional imaging evaluation). Result letter will be mailed to the patient. Note: At least 10% of breast cancer is not imaged by mammography. Dictated by: Dictated on workstation # [id number]
== END ==
LOC: RAD 13:12
PROVIDERS: ATTEND Family Medicine
DX: N63.23 Unspecified lump in the left breast, lower outer quadrant (principal)
CPT/HCPCS: 76642; 77062; 77066

== ENCOUNTER → 2022-03-17 | Outpatient (CLI) | payer OTHER ==
[2022-03-17 11:35] LABS: BASOPHILS # (AUTO) 0.1 10^3/uL (0.0-0.1); BASOPHILS % (AUTO) 1 % (0-10); EOSINOPHILS # (AUTO) 0.2 10^3/uL (0.0-0.3); EOSINOPHILS % (AUTO) 2 % (0-10); HEMATOCRIT 38 % (35-52); HEMOGLOBIN 12.9 g/dL (11.5-16.0); LYMPHOCYTES % (AUTO) 22 % (12-44); MEAN CORPUSCULAR HEMOGLOBIN 31 pg (25-34); MEAN CORPUSCULAR HGB CONC 34 g/dL (32-36); MEAN CORPUSCULAR VOLUME 91 fL (80-99); MEAN PLATELET VOLUME 10.3 fL (9.0-12.2); MONOCYTES # (AUTO) 0.7 10^3/uL (0.0-1.0); MONOCYTES % (AUTO) 8 % (0-12); NEUTROPHILS % (AUTO) 67 % (42-75); PLATELET COUNT 281 10^3/uL (130-400)
[2022-03-17 11:41] LABS: BILIRUBIN,URINE NEGATIVE (NEGATIVE); CLARITY,URINE CLEAR; COLOR,URINE YELLOW; GLUCOSE, URINE (UA) NEGATIVE (NEGATIVE); KETONES,URINE NEGATIVE (NEGATIVE); LEUKOCYTE ESTERASE ,URINE NEGATIVE (NEGATIVE); NITRITE,URINE NEGATIVE (NEGATIVE); PROTEIN,URINE NEGATIVE (NEGATIVE)
[2022-03-17 11:47] LABS: ALBUMIN 3.9 GM/DL (3.2-4.5); POTASSIUM 3.7 MMOL/L (3.6-5.0)
[2022-03-17 11:48] LABS: CALCIUM 8.8 MG/DL (8.5-10.1)
[2022-03-17 11:49] LABS: TOTAL PROTEIN 7.5 GM/DL (6.4-8.2)
[2022-03-17 11:51] LABS: BILIRUBIN,TOTAL 0.2 MG/DL (0.1-1.0)
[2022-03-17 11:53] LABS: CREATININE SERUM 0.7 MG/DL (0.60-1.30)
[2022-03-17 11:56] LABS: BACTERIA,URINE NEGATIVE /HPF; WBC,URINE RARE /HPF
[2022-03-17 11:57] LABS: AMORPHOUS SEDIMENT,UR RARE AMOR URATES /LPF
== END ==
LOC: LAB 11:03
PROVIDERS: ATTEND Family Medicine
DX: R11.10 Vomiting, unspecified (principal); E86.0 Dehydration; R53.1 Weakness
CPT/HCPCS: 36415; 80053; 81000; 82150; 85025

== ENCOUNTER → 2022-06-01 | Outpatient (CLI) | payer OTHER ==
[~2022-06-01] MED LIST changes: +ALBU8.5H6 IH; +LIDOCAINE 1% INJ 10 ML VIAL INJ ONE; -RT-ALBUINH IH
--- NOTE | 2022-06-01 15:08 | Diagnostic Imaging Report ---
INDICATION: Left breast mass. Patient presents for ultrasound-guided biopsy. Patient brought to the sonographic suite placed on table in the supine position. Ultrasound imaging of the left breast was performed to evaluate appropriate entry site. Left breast was then prepped and draped in usual sterile fashion. Small amount of 1% lidocaine was utilized for local anesthesia. A total of 4 passes were made into the solid mass at the 1-2 o'clock location of the left breast utilizing 14-gauge Achieve needle. Core biopsies were obtained. Marker clip was then deployed. Hemostasis was obtained using manual compression. Patient tolerated procedure well and was sent for post procedure mammogram in satisfactory condition. IMPRESSION: Successful ultrasound guided core biopsy of the ovoid circumscribed solid mass at the 1-2 o'clock location left breast. Pathology results are currently pending. Dictated by: Dictated on workstation # [id number]
--- NOTE | 2022-06-02 09:09 | Diagnostic Imaging Report ---
INDICATION: Left breast mass status post ultrasound-guided biopsy. Unilateral left 2-D exaggerated CC and ML views were obtained after patient underwent ultrasound-guided biopsy. There is a marker clip adjacent to the large mass in the upper outer left breast. IMPRESSION: Fernando clip placement upper outer left breast. Patient is status post ultrasound-guided core biopsy. Dictated by: Dictated on workstation # [id number]
== END ==
LOC: RAD 13:25
PROVIDERS: ATTEND Family Medicine
DX: N63.20 Unspecified lump in the left breast, unspecified quadrant (principal); Z98.890 Other specified postprocedural states
CPT/HCPCS: 19083

== ENCOUNTER → 2022-08-16 | Outpatient (CLI) | payer OTHER ==
[~2022-08-16] MED LIST changes: -LIDOCAINE 1% INJ 10 ML VIAL INJ ONE
--- NOTE | 2022-08-16 17:05 | Diagnostic Imaging Report ---
INDICATION: 51-year-old female, neck pain with movement. TECHNIQUE: AP, lateral and odontoid views cervical spine.. CORRELATION STUDY: None FINDINGS: The cervical spinal alignment is anatomic. Cervical vertebral body heights and disc spaces overall are fairly well maintained. Lateral masses of C1 and C2 aligned, odontoid intact. Prevertebral soft tissues unremarkable. IMPRESSION: 1. Negative for acute findings of the cervical spine. Dictated by: Dictated on workstation # [id number]
== END ==
LOC: RAD 12:25
PROVIDERS: ATTEND Family Medicine
DX: M54.2 Cervicalgia (principal)
CPT/HCPCS: 72040

== ENCOUNTER 2023-04-09 12:56 | Outpatient (RCR) | payer OTHER | END 2023-04-28 | disposition home or self-care (01) | LOC: ONC 12:56 | PROVIDERS: ATTEND Internal Medicine Hematology & Oncology | DX: D64.9 Anemia, unspecified (principal); F17.210 Nicotine dependence, cigarettes, uncomplicated; R20.2 Paresthesia of skin; R53.83 Other fatigue | CPT/HCPCS: 99204 ==